=== PATIENT | male | born 1945 | race Caucasian/White ===

== ENCOUNTER → 2016-07-18 | Outpatient (CLI) | payer MEDICARE | LOC: BFHH 12:46 | PROVIDERS: ATTEND Family Medicine | DX: I10 Essential (primary) hypertension (principal); I50.30 Unspecified diastolic (congestive) heart failure; E11.9 Type 2 diabetes mellitus without complications; I11.0 Hypertensive heart disease with heart failure; E78.00 Pure hypercholesterolemia, unspecified; M62.81 Muscle weakness (generalized) ==

== ENCOUNTER → 2017-01-09 | Outpatient (CLI) | payer MEDICARE ==
--- NOTE | 2017-01-11 15:11 | US ---
EXAM DESCRIPTION: Testicular CLINICAL HISTORY: 71 years Male, TESTICULAR MASS COMPARISON: None. FINDINGS: Testicles normal in size, shape, and echotexture. Blood flow documented to both testicles. No testicular mass. Right testicle 4.3 x 3.0 x 2.9 cm. Left testicle 4.2 x 3.3 x 2.7 cm. Epididymides unremarkable except for several tiny cysts on the right. IMPRESSION: No worrisome finding Electronically signed by: Hugo Gamboa MD 01/11/2017 3:10 PM CDT
== END ==
LOC: US 13:36
PROVIDERS: ATTEND Family Medicine
DX: N50.89 Other specified disorders of the male genital organs (principal)

== ENCOUNTER 2017-02-09 11:24 | Inpatient (IN) | payer MEDICARE ==
[2017-02-09] MEDS ORDERED: IPRATROPIUM/ALBUTEROL 3 ML VIAL NEB ONE (11:37)
--- NOTE | 2017-02-09 11:43 | ED.PDOC ---
History of Present Illness - General Chief Complaint: Respiratory Problem Stated Complaint: shortness of breath Time Seen by Provider: 02/09/17 11:37 Source: patient, RN notes reviewed, Vital Signs reviewed, RN/MD Exam Limitations: no limitations - History of Present Illness Initial Comments: Patient comes in to ER for PCP office for SOB and hypoxia. HE has COPD and is on O2 24 hours/day but he has been more SOB and even with increasing his O2 to 3L his O2 saturation was still low. Patient feels like there is something in his L lung. He increased his O2 to 3L about 2 weeks ago but his SOB got significantly worse 2 days ago. Patient has shingles on his L flank and thus has only been taking shallow breaths due to the pain. He is concerned me may have pneumonia. + chills, no fever. Nl appetite. No GILLIS. Timing/Duration: days - 2, getting worse Severity: moderate Activities at Onset: none Possible Cause: occasional episodes Improving Factors: nothing Worsening Factors: nothing Associated Symptoms: anxiety, cough, wheezing Respiratory Risk Factors: other - HX of COPD Allergies/Adverse Reactions: Allergies Metformin Allergy (Verified 02/09/17 11:40) Home Medications: Ambulatory Orders Arformoterol Tartrate [Brovana] 15 mcg IN BID 02/09/17 Aspirin [(None)] 325 mg PO QD 02/09/17 Budesonide Nebs [Pulmicort Respules] 0.5 mg NEB BID 02/09/17 Clonazepam 0.5 mg PO DAILY 02/09/17 Clonazepam 1 mg PO BEDTIME 02/09/17 Gabapentin 300 mg PO QID 02/09/17 Glimepiride 4 mg PO BID 02/09/17 Hydrocodone-Acetaminophen [Nebo 5-325 mg] 1 tab PO Q4H PRN 02/09/17 Lisinopril 20 mg PO DAILY 02/09/17 Metoprolol Succinate [Toprol XL] 50 mg PO DAILY 02/09/17 Multiple Vitamin [Multivitamins] 1 cap PO DAILY 02/09/17 Naproxen Sodium [Aleve] 220 mg PO BEDTIME 02/09/17 [place] Fatty Acids-Vitamins [[place]-3 Gummies] 1 chw PO BID 02/09/17 Pioglitazone HCl 45 mg PO DAILY 02/09/17 Pravastatin Sodium [Pravachol] 20 mg PO BEDTIME 02/09/17 Roflumilast [Daliresp] 500 mcg PO DAILY 02/09/17 Tiotropium Berthold Monohydrate [Spiriva Respimat] 2 inh IN DAILY 02/09/17 Review of Systems - Review of Systems Constitutional: States: chills, malaise. Denies: fever EENTM: States: no symptoms reported Respiratory: States: see HPI, cough, short of breath, wheezing Cardiology: States: no symptoms reported. Denies: chest pain, edema, palpitations, syncope Gastrointestinal/Abdominal: States: no symptoms reported Musculoskeletal: States: no symptoms reported Skin: States: no symptoms reported Neurological: States: no symptoms reported All other Systems: No Change from Baseline Family Medical History - Family History Father Family History: Unknown Living Status: Unknown Physical Exam - Physical Exam General Appearance: Alert, Ill Appearing, Well Developed, Well Groomed, Well Hydrated, Well Nourished, Other - Visabily SOB Neck: non-tender, full range of motion, supple, normal inspection Respiratory: chest non-tender, respiratory distress - Moderate, decreased breath sounds - throughout, accessory muscle use, wheezing Cardiovascular/Chest: regular rate, rhythm, no edema, no gallop, no murmur Extremity: normal range of motion, normal inspection Neurologic: alert, normal mood/affect, oriented x 3 Skin Exam: normal color, warm/dry Comments: Vital Signs 02/09/17 02/09/17 02/09/17 11:30 11:50 12:00 Temperature 96.2 F L Pulse Rate 82 Pulse Rate [ 92 H Left Brachial] Respiratory 28 H 28 H 18 Rate Blood Pressure 144/77 [Left Arm] O2 Sat by Pulse 94 L 99 Oximetry Progress - Progress Progress: 02/09/17 12:[address] Chu. Will admit for COPD exacerbation - Results/Orders Results/Orders: Laboratory Tests 02/09/17 02/09/17 02/09/17 11:55 11:55 11:55 WBC 7.5 RBC 4.18 L Hgb 13.1 L Hct 39.0 L MCV 93.2 MCH 31.3 H MCHC 33.6 RDW 14.5 Plt Count 240 MPV 7.5 Absolute Neuts (auto) 5.30 Absolute Lymphs (auto) 1.30 Absolute Monos (auto) 0.70 Absolute Eos (auto) 0.20 Absolute Basos (auto) 0.10 Neutrophils % 71.3 Lymphocytes % 16.7 L Monocytes % 8.9 Eosinophils % 2.3 Basophils % 0.8 D-Dimer, Quantitative < 230 Sodium 138 Potassium 6.3 H Chloride 102 Carbon Dioxide 29 Anion Gap 13.3 BUN 31 H Creatinine 1.28 BUN/Creatinine Ratio 24.2 H Random Glucose 148 H Serum Osmolality 285.0 Calcium 10.2 Total Bilirubin 0.3 AST 16 ALT 29 Alkaline Phosphatase 74 Serum Total Protein 7.6 Albumin 4.1 Globulin 3.5 Albumin/Globulin Ratio 1.2 - EKG/XRAY/CT EKG: Sinus, Tachy, nonspecific ST T wave Chg XRAY: chest - No acute process per Radiologist Departure - Departure Clinical Impression: COPD exacerbation, Hyperkalemia Time of Disposition: 12:40 Disposition: Admit Patient Condition: Poor Departure Forms: ED Discharge - Pt. Copy, Patient Portal Self Enrollment Referrals: Emmett Valderrama MD [Primary Care Provider] - 1-2 Weeks Home Medications: Ambulatory Orders Arformoterol Tartrate [Brovana] 15 mcg IN BID 02/09/17 Aspirin [(None)] 325 mg PO QD 02/09/17 Budesonide Nebs [Pulmicort Respules] 0.5 mg NEB BID 02/09/17 Clonazepam 0.5 mg PO DAILY 02/09/17 Clonazepam 1 mg PO BEDTIME 02/09/17 Gabapentin 300 mg PO QID 02/09/17 Glimepiride 4 mg PO BID 02/09/17 Hydrocodone-Acetaminophen [Nebo 5-325 mg] 1 tab PO Q4H PRN 02/09/17 Lisinopril 20 mg PO DAILY 02/09/17 Metoprolol Succinate [Toprol XL] 50 mg PO DAILY 02/09/17 Multiple Vitamin [Multivitamins] 1 cap PO DAILY 02/09/17 Naproxen Sodium [Aleve] 220 mg PO BEDTIME 02/09/17 [place] Fatty Acids-Vitamins [[place]-3 Gummies] 1 chw PO BID 02/09/17 Pioglitazone HCl 45 mg PO DAILY 02/09/17 Pravastatin Sodium [Pravachol] 20 mg PO BEDTIME 02/09/17 Roflumilast [Daliresp] 500 mcg PO DAILY 02/09/17 Tiotropium Berthold Monohydrate [Spiriva Respimat] 2 inh IN DAILY 02/09/17 Decision To Admit - Decistion To Admit Decision to Admit Reason: Admit from ER Decision to Admit Date: 02/09/17 Decision to Admit Time: 12:39
--- NOTE | 2017-02-09 12:21 | RAD ---
Portable chest INDICATION: Shortness of breath congestion COMPARISON: June 24, 2008 IMPRESSION: Normal heart size. Lungs are hyperexpanded. Small areas of scarring and nodularity are noted in both lung bases. When appropriate upright PA and lateral films would be useful to further characterize these. Nodular densities cannot be excluded especially in the left base. No large effusion or pneumothorax. Otherwise no acute process Electronically signed by: Erick Mcbride MD 02/09/2017 12:20 PM CDT
[2017-02-09] MEDS ORDERED: methylPREDNISolone SODIUM SUC 125 MG/2 ML VIAL IV ONE (12:40)
--- NOTE | 2017-02-09 13:08 | HP ---
HISTORY OF PRESENT ILLNESS: This 71 year-old white male is admitted to the hospital from Dr. Valderrama' clinic after being referred to the Emergency Room to assist in ruling out a significant pulmonary shunt such as a pulmonary emboli contributing to significant hypoxia with pulse oximetry 83% on 3 liters nasal cannula. The patient has had a longstanding history of chronic obstructive pulmonary disease with approximately a 100 pack year of smoking of up to 2 packs a day for 50 years. He is still smoking about 1/2 pack a day. He presents with worsening shortness of breath for the last month and has increased his oxygen from the usual 2 liters up to 3 liters about a month ago. He has had no fever, but he has had chills. Sputum is yellowish at times but no blood present. Of note is that 2 months ago he developed significant painful rash with vesicle and blister formation on the left flank and left thigh suggesting a herpes zoster or shingles which was conservatively treated and still having significant postherpetic neuralgia pain. The patient's respiratory condition is specifically contributing to his requirement for hospitalization. The patient is admitted to the hospital with elevated potassium, moderate dehydration, hypoxia, chronic obstructive pulmonary disease exacerbation and specialized treatment for his ongoing shingles. PAST MEDICAL HISTORY: 1. Diabetes mellitus on oral therapy. 2. Chronic obstructive pulmonary disease . 3. Chronic oxygen use generally at 2 liters, now 3 liters per minute for the last month. PAST SURGICAL HISTORY: 1. Gallbladder in approximately 1979. FAMILY HISTORY: Diabetes and lymphoma. 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 His is a nurse. REVIEW OF SYSTEMS: No significant weight loss or fever, but he has had some chills. HEENT: Decreased hearing especially on the left ear. Vision is fairly good. NECK: Otherwise supple. LUNGS: Significant shortness of breath initially to the point where he was unable to communicate in sentences. A little bit better after initiation of bronchial hygiene in the Emergency Room. CARDIOVASCULAR: No significant gallop rhythms. ABDOMEN: Soft, slightly distended. No organomegaly, masses or tenderness evident. He does have significant skin discoloration with areas of healing vesicles from the left flank around and including the left thigh region. Very tender to even slight touch. NEUROLOGIC: The patient is otherwise awake, alert and oriented. When asked a question, he noticeably stops and thinks about the question for a few seconds before responding. The is able to assist with the ongoing history. PHYSICAL EXAMINATION: VITAL SIGNS: Afebrile, pulse 76, blood pressure 115/70, pulse oximetry 94% on 3 liters in the Emergency Room. He had only 83% on [address] Valderrama' office. Respiratory rate 28 with respiratory distress initially evident. Weight 79.4 kilos. HEENT: Decreased hearing on the left with the patient receiving audible stimulus from the right side better than the left. NECK: Supple. No carotid bruits. CHEST: Lungs have markedly diminished breath sounds bilaterally, occasional cough and occasional rhonchi more present on the right lateral than the left. CARDIOVASCULAR: Heart tones somewhat distant yet appear to be fairly regular. ABDOMEN: Soft with diminished bowel tones. No organomegaly or masses noted. EXTREMITIES: Significant skin involvement with herpes zoster with healed vesicles and areas of hyperpigmented regions, very tender to touch from the left flank midline from the spine all the way down and to include the anterolateral posterior thigh on the left. NEUROLOGIC: Significant pain upon slight touch involving the herpes zoster region left lumbar distribution. LABORATORY: White count 7,500, hemoglobin 13.1, D-dimer is under 230. Chemistry shows potassium 6.3 not on any potassium supplements, CO2 is 29, BUN 31, creatinine 1.28, glucose 148. Urine pending. Blood cultures pending. Chest x-ray shows evidence of chronic obstructive pulmonary disease with emphysematous changes. ASSESSMENT: 1. Chronic obstructive pulmonary disease with an acute exacerbation. 2. Significant hypoxia noted to be getting worse for the last month contributing to significant respiratory distress. 3. Moderate dehydration state. 4. Mild prerenal azotemia with elevated BUN. 5. Hyperkalemia with treatment initiated. 6. Recent Herpes Zoster with associated Neuralgia - Lumbar 1-2 dermatomes on Left PLAN: The patient is admitted to the hospital for hydration as well as Kayexalate to assist with reduction of the hyperkalemic state. Started on Solu- Medrol, vigorous bronchodilators and bronchial hygiene, and close followup necessary. Reevaluation. Continue with localized treatment to the herpes zoster as well as his ongoing medication nebulizers from home and the hospital to assist with the respiratory state. Reevaluate. #[id number] [facility]
[2017-02-09] MEDS ORDERED: HYDROcodone 5MG/APAP 325MG 1 EA TAB PO ONE (15:33)
[2017-02-09] MEDS ORDERED: GLIMEPIRIDE 2 MG TAB ONE (15:38)
[2017-02-09] MEDS ORDERED: GABAPENTIN 300 MG CAP ONE (15:39)
[2017-02-09] MEDS: LISINOPRIL 10 MG TAB PO SCH (15:40)
[2017-02-09] MEDS ORDERED: SODIUM CHLORIDE 0.9% (FLUSH) 10 ML SYG IV PRN (15:46)
[2017-02-09] MEDS ORDERED: TEMAZEPAM 15 MG CAP PO PRN (15:46)
[2017-02-09] MEDS ORDERED: MAGNESIUM HYDROXIDE 30 ML UD PO PRN (15:46)
[2017-02-09] MEDS ORDERED: LEVALBUTEROL NEBS 1.25 MG/3 ML VIAL INH PRN (15:46)
[2017-02-09] MEDS ORDERED: SOD POLYSTYRENE SULFONATE 15 GM/60 ML BTTL PO ONE (15:55)
[2017-02-09] MEDS ORDERED: IV SET AND CAP CHANGE INJ INJ SCH (16:00)
[2017-02-09] MEDS: HYDROcodone 5MG/APAP 325MG 1 EA TAB PO PRN (16:20)
[2017-02-09] MEDS: SILVER SULFADIAZINE 1 % 25 GM TUBE TOP PRN (16:20)
[2017-02-09] MEDS: ENOXAPARIN SODIUM 40 MG/0.4 ML SYG SUBCU SCH (16:20)
[2017-02-09] MEDS: GLIMEPIRIDE 2 MG TAB PO SCH (16:21)
[2017-02-09] MEDS: GABAPENTIN 300 MG CAP PO SCH ×2 (16:21→20:40)
[2017-02-09] MEDS: IPRATROPIUM/ALBUTEROL 3 ML VIAL INH SCH ×2 (16:26→20:27)
[2017-02-09] MEDS: NON-FORMULARY MEDICATION 1 EA MIS (Roflumilast [Daliresp] 500 MCG) PO SCH (16:29)
[2017-02-09] MEDS ORDERED: diphenhydrAMINE HCL 25 MG CAP PO PRN (19:08)
--- NOTE | 2017-02-09 19:22 | PCM.CORE ---
Physician DVT/VTE - Nurse DVT Assessment & Total Each Risk Factor Represents 2 Points: Age 60-74 Each Risk Factor Represents 1 Point: Hx of smoking past year Each Risk Factor is 1 Point: Serious Lung disease (pnemonia <1month, COPD, emphysema,etc) DVT Assessment Score: 4 - 3-4 High Risk Treatments: Sequential Compression Device Pharmacological: Enoxaparin 40 mg SQ Daily
[2017-02-09] MEDS ORDERED: methylPREDNISolone SODIUM SUC 40 MG/ML VIAL ONE (19:31)
[2017-02-09] MEDS ORDERED: NAPROXEN SODIUM 220 MG TAB PO ONE (19:31)
[2017-02-09] MEDS ORDERED: OMEPRAZOLE CAP 20 MG CAP ONE (19:31)
[2017-02-09] MEDS: NICOTINE PATCH 14 MG TD SCH (19:49)
[2017-02-09] MEDS: SODIUM CHLORIDE 0.9% 1000ML 1,000 ML IVS PRN (19:51)
[2017-02-09] MEDS: ARFORMOTEROL TARTRATE 15 MCG/2 ML NEB NEB SCH ×2 (20:26)
[2017-02-09] MEDS: NON-FORMULARY MEDICATION 1 EA MIS (Tiotropium Bromide Monohydrate [Spiriva Respimat] 2 INH INH SCH (20:27)
[2017-02-09] MEDS: BUDESONIDE NEBS 0.5 MG/2 ML VIAL NEB SCH ×2 (20:27→20:37)
[2017-02-09] MEDS: NAPROXEN SODIUM 220 MG TAB PO SCH (20:39)
--- NOTE | 2017-02-10 06:31 | RAD ---
Procedure: XR CHEST 2 VIEWS Exam Date: 02/10/2017 Ordering Provider: NIC AARON MD Clinical Indication: hypoxia Comparison: 02/09/2017 Findings: Cardiomediastinal silhouette is stable. Focal lung consolidation: No focal lung consolidation. Changes of COPD. Pleural effusion: None Pneumothorax: None Acute bony or soft tissue abnormality: None Impression: 1. No acute abnormalities in the chest. Electronically signed by: Dhaval Rodriguez MD 02/10/2017 6:29 AM CDT
[2017-02-10] MEDS: methylPREDNISolone SODIUM SUC 40 MG/ML VIAL IV SCH ×3 (06:39→22:43)
[2017-02-10] MEDS: OMEPRAZOLE CAP 20 MG CAP PO SCH (06:39)
[2017-02-10] MEDS: NON-FORMULARY MEDICATION 1 EA MIS (Tiotropium Bromide Monohydrate [Spiriva Respimat] 2 INH INH SCH (08:09)
[2017-02-10] MEDS: ARFORMOTEROL TARTRATE 15 MCG/2 ML NEB NEB SCH ×2 (08:21→20:12)
[2017-02-10] MEDS: IPRATROPIUM/ALBUTEROL 3 ML VIAL INH SCH ×4 (08:21→20:12)
[2017-02-10] MEDS: BUDESONIDE NEBS 0.5 MG/2 ML VIAL NEB SCH ×2 (08:21→20:12)
[2017-02-10] MEDS: GLIMEPIRIDE 2 MG TAB PO SCH ×2 (08:30→16:00)
[2017-02-10] MEDS: HYDROcodone 10MG/APAP 325MG 1 EA TAB PO PRN (08:38)
[2017-02-10] MEDS: MULTIPLE VITAMINS W/ MINERALS 1 EA TAB PO SCH (08:38)
[2017-02-10] MEDS: ASPIRIN TABLET 325 MG TAB PO SCH (08:38)
[2017-02-10] MEDS: GABAPENTIN 300 MG CAP PO SCH ×4 (08:38→20:43)
[2017-02-10] MEDS: ENOXAPARIN SODIUM 40 MG/0.4 ML SYG SUBCU SCH (08:39)
[2017-02-10] MEDS: PIOGLITAZONE 15 MG TAB PO SCH (08:39)
[2017-02-10] MEDS: METOPROLOL SUCCINATE XL 50 MG TAB PO SCH (08:39)
[2017-02-10] MEDS: LISINOPRIL 10 MG TAB PO SCH (08:39)
[2017-02-10] MEDS: NON-FORMULARY MEDICATION 1 EA MIS (Roflumilast [Daliresp] 500 MCG) PO SCH ×2 (08:40→10:49)
[2017-02-10] MEDS: SODIUM CHLORIDE 0.9% 1000ML 1,000 ML IVS PRN ×2 (08:41→20:45)
[2017-02-10] MEDS ORDERED: MULTIPLE VITAMIN PO SCH (09:00)
[2017-02-10] MEDS: SILVER SULFADIAZINE 1 % 25 GM TUBE TOP PRN (10:50)
[2017-02-10] MEDS: HYDROcodone 5MG/APAP 325MG 1 EA TAB PO PRN (12:28)
--- NOTE | 2017-02-10 17:13 | PN ---
DATE: 02/10/17 SUBJECTIVE: The patient is sitting up and states he feels much less dyspneic and short of breath today compared to yesterday. He has been able to get up and walk a little bit but we have no record yet of the results of his ambulation study checking for desaturation and possible requirements for continued oxygen at home. Appetite is fair. Still with tenderness and hypesthesia in the region of the herpes zoster, low left back into the left thigh. Also with some discomfort over the costochondral joint of the left lateral ribs. OBJECTIVE: VITAL SIGNS: Afebrile. Pulse 86, blood pressure 105/61, pulse oximetry 98% on 2 liters. GENERAL: The patient is awake and alert. Still some hesitancy in answering questions as he thinks the answer thoroughly through. Will discuss his case with his in the morning. LUNGS: Diminished breaths sounds bilaterally. HEART: Tones regular. ABDOMEN : Soft, still no results from milk of magnesia yet. LABORATORY: Hemoglobin is down to 11.1, normocytic normochromic with a white count of 7,800. Chemistries show potassium down from 6.3 to 5.5 and normal being under 5.0. BUN is 36, creatinine down to 1.06, glucose 203, calcium 9.2, liver enzymes normal. Beta natriuretic peptide 64, albumin 3.5, TSH 0.14. Blood cultures are negative. Chest x-ray shows emphysematous changes but no acute infiltrates or inflammatory processes noted. ASSESSMENT: 1. Chronic obstructive pulmonary disease with an acute exacerbation. 2. Significant hypoxia noticing to be getting worse over the last month no doubt contributing to his significant respiratory distress noted prior to admission and probably secondary to the chronic obstructive pulmonary disease. 3. Moderate dehydration state. 4. Mild prerenal azotemia with elevated BUN. 5. Hyperkalemia with treatment initiated and showing some improvement. 6. Post-Herpetic Neuralgia. Left Lumbar 1&2 dermatomes. PLAN: Continue on reduced dose of Solu-Medrol. Reevaluation in the morning. Await ambulation study to check on ongoing need of oxygen for home use. Continue with herpes zoster treatment and observe to see if corticosteroid assist with some of the symptomatology, Regular basis in the morning. [facility][id number] [facility]
[2017-02-10] MEDS: NICOTINE PATCH 14 MG TD SCH (18:30)
[2017-02-10] MEDS: NAPROXEN SODIUM 220 MG TAB PO SCH (20:43)
[2017-02-11] MEDS: HYDROcodone 10MG/APAP 325MG 1 EA TAB PO PRN (04:16)
[2017-02-11] MEDS: OMEPRAZOLE CAP 20 MG CAP PO SCH (06:37)
[2017-02-11] MEDS: methylPREDNISolone SODIUM SUC 40 MG/ML VIAL IV SCH ×2 (07:26→08:21)
[2017-02-11] MEDS: GLIMEPIRIDE 2 MG TAB PO SCH (07:26)
[2017-02-11] MEDS: PIOGLITAZONE 15 MG TAB PO SCH (08:10)
[2017-02-11] MEDS: ASPIRIN TABLET 325 MG TAB PO SCH (08:10)
[2017-02-11] MEDS: METOPROLOL SUCCINATE XL 50 MG TAB PO SCH (08:10)
[2017-02-11] MEDS: MULTIPLE VITAMINS W/ MINERALS 1 EA TAB PO SCH (08:10)
[2017-02-11] MEDS: LISINOPRIL 10 MG TAB PO SCH (08:10)
[2017-02-11] MEDS: GABAPENTIN 300 MG CAP PO SCH ×2 (08:10→13:11)
[2017-02-11] MEDS: ENOXAPARIN SODIUM 40 MG/0.4 ML SYG SUBCU SCH (08:11)
[2017-02-11] MEDS: BUDESONIDE NEBS 0.5 MG/2 ML VIAL NEB SCH (08:21)
[2017-02-11] MEDS: IPRATROPIUM/ALBUTEROL 3 ML VIAL INH SCH ×2 (08:21→12:39)
[2017-02-11] MEDS: ARFORMOTEROL TARTRATE 15 MCG/2 ML NEB NEB SCH (08:21)
[2017-02-11] MEDS: NON-FORMULARY MEDICATION 1 EA MIS (Tiotropium Bromide Monohydrate [Spiriva Respimat] 2 INH INH SCH (08:21)
[2017-02-11] MEDS: NON-FORMULARY MEDICATION 1 EA MIS (Roflumilast [Daliresp] 500 MCG) PO SCH (08:27)
[2017-02-11] MEDS ORDERED: SOD POLYSTYRENE SULFONATE 15 GM/60 ML BTTL PO SCH (09:00)
[2017-02-11] MEDS: SODIUM CHLORIDE 0.9% 1000ML 1,000 ML IVS PRN (09:36)
[2017-02-11] MEDS ORDERED: FUROSEMIDE INJ 20 MG/2 ML VIAL IV ONE (10:42)
[2017-02-11 11:20] VITALS: O2SAT 98
[2017-02-11] MEDS: HYDROcodone 5MG/APAP 325MG 1 EA TAB PO PRN (13:11)
[2017-02-11 14:06] VITALS: BP 125/72; TEMP 98.7
--- NOTE | 2017-02-11 20:51 | DS ---
DISCHARGE DIAGNOSIS: 1. Chronic obstructive pulmonary disease with an acute exacerbation requiring corticosteroid administration, bronchodilator with pulmonary hygiene for assistance. 2. Significant hypoxia on admission getting worse for the last month, no doubt contributing to his significant respiratory distress and probably secondary to COPD exacerbation. 3. Moderate dehydration state. 4. Mild prerenal azotemia with an elevated BUN. 5. Hyperkalemia with specific treatment started and to be continued at home, chronic in nature deserving continued followup. 6. Subacute Herpes Zoster with post-herpetic neuralgia in Lumbar 1&2 distribution HISTORY OF PRESENT ILLNESS: This 71 year-old white male was admitted to the hospital from the Emergency Room after being sent from Dr. Valderrama' office because of significant shortness of breath with hypoxia and respiratory distress. He had a pulse oximetry of 83% on 3 liters. He normally takes 2 liters of nasal cannula oxygen at home but has had to increase it to 3 liters for the last month. He has had a longstanding history of chronic obstructive pulmonary disease with over 100 pack year history of smoking and is currently at 1/2 or slightly more pack of cigarettes per day and encouraged to stop completely. It is of note that he has been increasing his oxygen fairly significantly when he is short of breath which may be contributing to some slightly increased CO2 retention. Significant occurrence of herpes zoster in the left lumbar region primarily involving L1, 2 and 3 distributions. The vesicles have subsequently dried up but he is still having significant postherpetic neuralgia pain. In the Emergency Room, he was noted to have a fairly normal D-dimer which assisted in eliminating at this time significant pulmonary emboli contributing to his significant hypoxic state suggesting a pulmonary shunt. His chest x-rays did show chronic obstructive pulmonary disease with no infiltrative process and he was admitted to the hospital for specific treatment and support for a significant acute exacerbation of his chronic obstructive pulmonary disease. LABORATORY: White count is 7,800, hemoglobin dropped from 13.1 to 10.7. D- dimer was under 230. Chemistry shows an elevated potassium which is chronic currently up to 6.3 down to 5.5 and then up to 5.9 and requiring repeat dosings of the Kayexalate. His BUN was elevated at 35 and creatinine was down to 1.02, glucose because of corticosteroids increased from 148 up to 271. Calcium normal at 9.5. Liver enzymes normal. Beta natriuretic peptide initially was 64 increasing to 163 probably secondary to some of the fluid infusions that he received and subsequently were stopped. Albumin 3.5, TSH somewhat low at 0.14. Urinalysis showed glycosuria and ketonuria, otherwise clean. Blood cultures were negative. Repeat chest x-ray did show chronic obstructive pulmonary disease with no acute abnormalities otherwise evident. HOSPITAL COURSE: The patient was feeling much improved by the morning of discharge. He will have specifically close outpatient followup with Dr. Valderrama' office. Long discussion was undertaken to impress upon him the importance of stopping all smoking. PLAN: The patient is discharged home to have close followup with Dr. Valderrama this next week. He is to call for an appointment. Stop all smoking. He may try nicotine patches to assist him with the urge to restart his smoking with close followup with Dr. Valderrama. Use oxygen at home to maintain pulse oximetry between 91 and 93% only. Recheck further lab work with Dr. Valderrama later this week in his clinic to help followup on kidney function and electrolytes. Continue with medication nebulizer treatments to help the lungs. Try to increase exercise level to become stronger. Continue followup regarding the pain from the shingles. Try Milk of Magnesia to help prevent constipation. Breathe deeply and actively contract and relax muscles of the legs to help prevent leg clots in the veins of his legs. Return if not improving. May benefit from pulmonary rehabilitation. Close followup suggested. #[id number] [facility]
[2017-02-11] MEDS ORDERED: SODIUM CHLORIDE 0.9% (FLUSH) 10 ML SYG IV SCH (21:00)
== END 2017-02-11 15:20 | disposition home or self-care (01) | DRG 191 ==
LOC: ER 11:24 → MS 13:07
PROVIDERS: ADMIT Emergency Medicine; ATTEND Emergency Medicine
DX: J44.1 Chronic obstructive pulmonary disease with (acute) exacerbation (principal); B02.29 Other postherpetic nervous system involvement; R09.02 Hypoxemia; E86.0 Dehydration; R79.89 Other specified abnormal findings of blood chemistry; R74.8 Abnormal levels of other serum enzymes; E87.5 Hyperkalemia; E11.9 Type 2 diabetes mellitus without complications; F17.210 Nicotine dependence, cigarettes, uncomplicated; Z99.81 Dependence on supplemental oxygen

== ENCOUNTER 2017-05-22 13:37 | Inpatient (IN) | payer MEDICARE ==
--- NOTE | 2017-05-22 14:03 | ED.PDOC ---
History of Present Illness - General Chief Complaint: General Stated Complaint: weakness and falls Time Seen by Provider: 05/22/17 13:45 Source: patient, family - History of Present Illness Initial Comments: PT WAS BROUGHT TO THE ED FOR EVALUATION TODAY FOR EVALUATION OF GENERALIZED WEAKNESS ASSOCIATED WITH 3 FALLS OVER THE PAST FEW DAYS. PT WAS ALSO FOUND TO HAVE ELEVATED BLOOD GLUCOSE TODAY. CHIEF OF PARTY DENIES ANY HEAD TRAUMA OR LOC DURING THE FALLS. PT COMPLAINS OF TAILBONE PAIN AFTER FALL. Timing/Duration: 1 week Severity: moderate Improving Factors: nothing Worsening Factors: nothing Associated Symptoms: cough, fever/chills, malaise, weakness Allergies/Adverse Reactions: Allergies Metformin Allergy (Verified 02/09/17 11:40) Home Medications: Ambulatory Orders Arformoterol Tartrate [Brovana] 15 mcg IN BID 02/09/17 Aspirin 325 mg PO QD 02/09/17 Budesonide Nebs [Pulmicort Respules] 0.5 mg NEB BID 02/09/17 Clonazepam 0.5 mg PO DAILY 02/09/17 Clonazepam 1 mg PO BEDTIME 02/09/17 Gabapentin 300 mg PO QID 02/09/17 Glimepiride 4 mg PO BID 02/09/17 Hydrocodone-Acetaminophen [[place] 5-325 mg] 2 tab PO Q4H PRN 02/09/17 Lisinopril 20 mg PO DAILY 02/09/17 Metoprolol Succinate [Toprol Xl] 50 mg PO DAILY 02/09/17 Multiple Vitamin [Multivitamins] 1 cap PO DAILY 02/09/17 Naproxen Sodium [Aleve] 220 mg PO BEDTIME 02/09/17 [place] Fatty Acids-Vitamins [[place]-3 Gummies] 1 chw PO BID 02/09/17 Pioglitazone HCl 45 mg PO DAILY 02/09/17 Pravastatin Sodium [Pravachol] 20 mg PO BEDTIME 02/09/17 Roflumilast [Daliresp] 500 mcg PO DAILY 02/09/17 Tiotropium [place] Monohydrate [Spiriva Respimat] 2 inh IN DAILY 02/09/17 Furosemide [Lasix] 20 mg PO DAILY 05/22/17 Varenicline Tartrate [Chantix] 1 mg PO BID 05/22/17 Review of Systems - Review of Systems Constitutional: States: fever, malaise, weakness. Denies: chills EENTM: Denies: blurred vision, ear discharge, throat pain Respiratory: States: see HPI, cough, short of breath. Denies: stridor Cardiology: Denies: chest pain, edema, palpitations, syncope Gastrointestinal/Abdominal: Denies: abdominal pain, diarrhea, nausea, vomiting Genitourinary: Denies: dysuria, frequency, hematuria Skin: Denies: change in color, dryness, lesions Neurological: States: weakness. Denies: headache, numbness, paresthesia Endocrine: States: no symptoms reported Hematologic/Lymphatic: States: no symptoms reported Past Medical History (General) - Patient Medical History Hx Seizures: No Hx Stroke: No Hx Asthma: No Hx of COPD: Yes - exacerbation on arrival Hx Congestive Heart Failure: No Hx Pacemaker: No Hx Hypertension: Yes - controlled w/ meds Hx Diabetes: Yes - Type 2 Hx Cancer: No Hx Hepatitis C: No Hx MRSA: No Surgical History: cholecystectomy - Vaccination History Hx Tetanus, Diphtheria Vaccination: Yes Hx Influenza Vaccination: Yes Hx Pneumococcal Vaccination: Yes Immunizations Up to Date: Yes - Social History Hx Tobacco Use: Yes Hx Alcohol Use: Yes - SOCIAL Hx Substance Use: No Hx Substance Use Treatment: No Hx Depression: No Hx Physical Abuse: No Hx Emotional Abuse: No Family Medical History - Family History Father Family History: Unknown Living Status: Unknown Physical Exam - Physical Exam General Appearance: Alert, Frail, No apparent distress Ears, Nose, Throat: hearing grossly normal Neck: non-tender, full range of motion Respiratory: chest non-tender, no respiratory distress, no accessory muscle use , decreased breath sounds, rhonchi Cardiovascular/Chest: regular rate, rhythm, no murmur Gastrointestinal/Abdominal: non tender, soft Back Exam: normal inspection, other - TENDERNESS OF COCCYX Extremity: normal inspection, no pedal edema, no calf tenderness Neurologic: no motor/sensory deficits, alert Skin Exam: normal color, warm/dry Progress - Progress Progress: 05/22/17 17:20 PT CONTINUES TO REST COMFORTABLY, LABS AND DIAGNOSTIC STUDIES DISCUSSED WITH CHIEF OF PARTY. - Results/Orders Results/Orders: 05/22/17 13:59 IV Care:Saline Lock per Protoc QSHIFT Telemetry .ONCE CARDIAC ENZYME GROUP Stat COMPLETE METABOLIC PROFILE Stat Sodium Chloride 0.9% (Flush) [Saline Flush Syringe] 10 ml IV PRN PRN BLOOD CULTURE Stat URINE CULTURE W/COLONY COUNT Stat EKG Stat Pulse Ox Stat URINALYSIS Stat 05/22/17 14:00 EKG Assessment ONCE Pulse Oximetry Assessment DAILY Laboratory Results - last 24 hr 05/22/17 05/22/17 05/22/17 13:59 13:59 13:59 WBC 15.7 H RBC 3.13 L Hgb 9.6 L Hct 28.4 L MCV 90.7 MCH 30.6 MCHC 33.9 RDW 14.4 Plt Count 263 MPV 6.9 L Absolute Neuts (auto) 13.80 H Absolute Lymphs (auto) 0.40 L Absolute Monos (auto) 1.30 H Absolute Eos (auto) 0.00 Absolute Basos (auto) 0.10 Neutrophils % 88.2 H Lymphocytes % 2.8 L Monocytes % 8.5 Eosinophils % 0.0 L Basophils % 0.5 PT 13.3 H INR 1.180 PTT (SP) 32.9 pCO2 pO2 HCO3 ABG pH ABG O2 Saturation ABG Base Excess ABG Deoxyhemoglobin Oxyhemoglobin % Carboxyhemoglobin % Methemoglobin % Sat Calc Total Hemoglobin Sodium 128 L Potassium 5.5 H Chloride 92 L Carbon Dioxide 24 Anion Gap 17.5 BUN 46 H Creatinine 1.88 H BUN/Creatinine Ratio 24.5 H Random Glucose 291 H Serum Osmolality 279.7 Lactic Acid Calcium 9.5 Total Bilirubin 0.4 AST 24 ALT 17 Alkaline Phosphatase 67 Creatine Kinase 100 CK-MB (CK-2) 1.1 Troponin I 0.02 Serum Total Protein 7.5 Albumin 3.2 Globulin 4.3 H Albumin/Globulin Ratio 0.7 L 05/22/17 05/22/17 13:59 14:19 WBC RBC Hgb Hct MCV MCH MCHC RDW Plt Count MPV Absolute Neuts (auto) Absolute Lymphs (auto) Absolute Monos (auto) Absolute Eos (auto) Absolute Basos (auto) Neutrophils % Lymphocytes % Monocytes % Eosinophils % Basophils % PT INR PTT (SP) pCO2 36 pO2 96 HCO3 24.8 ABG pH 7.450 ABG O2 Saturation 99.9 H ABG Base Excess 1.5 ABG Deoxyhemoglobin 0.1 Oxyhemoglobin % 97.5 Carboxyhemoglobin % 0.8 Methemoglobin % Sat 1.6 H Calc Total Hemoglobin 9.8 L Sodium Potassium Chloride Carbon Dioxide Anion Gap BUN Creatinine BUN/Creatinine Ratio Random Glucose Serum Osmolality Lactic Acid 2.4 H* Calcium Total Bilirubin AST ALT Alkaline Phosphatase Creatine Kinase CK-MB (CK-2) Troponin I Serum Total Protein Albumin Globulin Albumin/Globulin Ratio - EKG/XRAY/CT EKG: Sinus, Tachy - @101, NL INTERVALS, NL AXIS, POOR R WAVE PROGRESSION, no ST T wave changes, Unchanged from - 02/09/17 XRAY: chest - NO ACUTE FINDINGS PER RAD Departure - Departure Clinical Impression: UTI (urinary tract infection), Generalized muscle weakness, Acute kidney injury , Hyponatremia, Hyperglycemia, Hyperkalemia, Dehydration Time of Disposition: 17:10 Disposition: Admit Patient Condition: Fair Home Medications: Ambulatory Orders Arformoterol Tartrate [Brovana] 15 mcg IN BID 02/09/17 Aspirin 325 mg PO QD 02/09/17 Budesonide Nebs [Pulmicort Respules] 0.5 mg NEB BID 02/09/17 Clonazepam 0.5 mg PO DAILY 02/09/17 Clonazepam 1 mg PO BEDTIME 02/09/17 Gabapentin 300 mg PO QID 02/09/17 Glimepiride 4 mg PO BID 02/09/17 Hydrocodone-Acetaminophen [[place] 5-325 mg] 2 tab PO Q4H PRN 02/09/17 Lisinopril 20 mg PO DAILY 02/09/17 Metoprolol Succinate [Toprol Xl] 50 mg PO DAILY 02/09/17 Multiple Vitamin [Multivitamins] 1 cap PO DAILY 02/09/17 Naproxen Sodium [Aleve] 220 mg PO BEDTIME 02/09/17 [place] Fatty Acids-Vitamins [[place]-3 Gummies] 1 chw PO BID 02/09/17 Pioglitazone HCl 45 mg PO DAILY 02/09/17 Pravastatin Sodium [Pravachol] 20 mg PO BEDTIME 02/09/17 Roflumilast [Daliresp] 500 mcg PO DAILY 02/09/17 Tiotropium [place] Monohydrate [Spiriva Respimat] 2 inh IN DAILY 02/09/17 Furosemide [Lasix] 20 mg PO DAILY 05/22/17 Varenicline Tartrate [Chantix] 1 mg PO BID 05/22/17
[2017-05-22] MEDS: SODIUM CHLORIDE 0.9% (FLUSH) 10 ML SYG IV PRN ×2 (14:30→20:24)
--- NOTE | 2017-05-22 15:35 | RAD ---
EXAM DESCRIPTION: Chest,1 View CLINICAL HISTORY: 72 years, Male, COUGH/FEVER COMPARISON: February 10 FINDINGS: Hyperinflation. Scarring the bases. Borderline heart size. Atherosclerotic aorta. IMPRESSION: Hyperinflation with chronic lung change. No consolidation. Borderline heart size Electronically signed by: Toño Berrios MD 05/22/2017 3:34 PM [facility]SP[facility]ATION ESCORT
--- NOTE | 2017-05-22 15:38 | RAD ---
EXAM DESCRIPTION: Sacrum Coccyx CLINICAL HISTORY: 72 years Male, FALL COMPARISON: None. FINDINGS: 3 views of the sacrum were obtained. The inferior portion of the sacrum is suboptimally visualized on all views, partially related to superimposed bowel contents. No displaced sacral fracture is identified. Vascular calcifications are noted. IMPRESSION: Slightly limited exam with no apparent displaced sacral fracture. If clinical suspicion of sacral or other pelvic fracture persists, CT should be considered. Electronically signed by: Jatinder St MD 05/22/2017 3:37 PM [facility]
[2017-05-22] MEDS ORDERED: cefTRIAXone SODIUM 1 GM in SODIUM CHL 0.9% 50ML MIN-BAG+ 50 ML IVPB ONE (16:46)
[2017-05-22] MEDS ORDERED: SODIUM CHL 0.9% 50ML MIN-BAG+ 50 ML IVPB ONE (16:52)
[2017-05-22] MEDS ORDERED: cefTRIAXone SODIUM 1 GM VIAL ONE (16:52)
--- NOTE | 2017-05-22 17:20 | HP ---
SUPERVISING PHYSICIAN: Shemar Ansari MD CHIEF COMPLAINT: Weakness and falls. HISTORY OF PRESENT ILLNESS: This is a 72-year-old male patient who came to the Emergency Room due to generalized weakness and falls. He states for the last three days he has fallen multiple times. He states he has weakness in his legs and has weakness in his back and neck as well. For this reason, he came to the Emergency Room. He also has pain especially around his tailbone. This was x- rayed and did not reveal any sort of sacral fracture. A more complete workup was done which included labs and urinalysis as well. The labs done showed an elevated white count of 15.7, hemoglobin 9.6, platelet count 263. He also had an arterial blood gas which was unremarkable. Chemistries showed a sodium of 128, potassium 5.5, BUN 46, creatinine 1.88, glucose 291, lactic acid 2.4. Urinalysis was consistent with a urinary tract infection, positive for nitrites , WBCs 30 to 40, urine bacteria 4+. For this reasons, he was referred for admission from the Emergency Room physician, Dr. Torres. Upon examination, the patient appears acutely ill. He is awake and alert, but definitely weak in his lower extremities. He does have a history of chronic obstructive pulmonary disease and he does use oxygen continuously. He is a little bit dyspneic on exam as well. PAST MEDICAL HISTORY: 1. Diabetes mellitus. 2. Chronic obstructive pulmonary disease on chronic oxygen therapy. 3. Hypertension. 4. Generalized anxiety disorder. 5. Herpes zoster. 6. Hypertensive heart disease. 7. Hyperlipidemia. PAST SURGICAL HISTORY: 1. Cholecystectomy. 2. Cataract removal. MEDICATIONS: 1. Gabapentin 600 mg p.o. q.i.d. 2. Furosemide 20 mg p.o. daily. 3. [place] 5/325 1 tablet every 4 to 6 hours p.r.n. for pain. 4. Brovana 18 mcg inhaled in nebulizer b.i.d. 5. Budesonide 2.5 mg 1 ampule b.i.d. 6. Daliresp 500 mcg 1 tablet daily. 7. Glimepiride 4 mg p.o. b.i.d. 8. Lisinopril 20 mg daily. 9. Actos 45 mg daily. 10. Pravastatin 20 mg daily at bedtime. 11. Spiriva 2.5 mcg inhaled 2 puffs daily. 12. Clonazepam 1 mg half tab in the morning and 1 tab at h.s. 13. Aleve 220 mg p.o. q.h.s. 14. Multivitamins 1 tab daily. 15. Aspirin 325 mg p.o. daily. 16. Seth-3 fatty acids twice daily. ALLERGIES: METFORMIN WHICH REPORTEDLY CAUSES DIARRHEA. FAMILY HISTORY: Mother had lymphoma. SOCIAL HISTORY: The patient is a former smoker, but does not smoke any longer. No alcohol, no illicit drugs. He is . REVIEW OF SYSTEMS: CONSTITUTIONAL: No fever or chills. No recent weight loss or weight gain. HEENT: No headaches or vision changes, ear pain, throat pain or nasal congestion. RESPIRATORY: Positive for cough, shortness of breath. No pleuritic chest pain. CARDIOVASCULAR: No chest pain, palpitations, peripheral edema. GASTROINTESTINAL: No nausea, vomiting, diarrhea, constipation or abdominal pain. GENITOURINARY: No dysuria, frequency or flank pain. SKIN: No rashes, lesions or wounds. NEUROLOGIC: Positive for weakness. No syncope or paresthesias. ENDOCRINE: No polydipsia, polyuria or polyphagia, no heat or cold intolerance. HEMATOLOGIC: Positive for easy bruising. PHYSICAL EXAMINATION: VITAL SIGNS: Blood pressure 99/52. Heart rate 94. Respiratory rate 20. Temperature 101.9. Oxygen saturation 97%. GENERAL: Mr. Ivory is a 72-year-old male patient acutely ill at this time. HEENT: Normocephalic, atraumatic. Pupils equal and reactive. No nasal drainage. Throat with slightly dry buccal mucosa. NECK: Supple with midline trachea. No jugular venous distention. CHEST: Symmetric. Equal rise and fall with inspiration and expiration. Lungs sounds with prolonged expiratory phase with a slight wheeze bilaterally. CARDIOVASCULAR: Regular rate and rhythm with normal S1, S2. ABDOMEN: Soft, positive bowel sounds. He does complain of some flank pain, but I think it is more related to his sensitivity from herpes zoster. GENITOURINARY: Deferred. EXTREMITIES: Lower extremities with some trace ankle edema. Peripheral pulses are 1+. Capillary refill is approximately 3 seconds. NEUROLOGIC: The patient is alert and oriented. He moves all extremities . Extraocular muscles are intact. LABORATORY: Urinalysis is positive for nitrites as well as WBCs in the urine. Chemistries as above in history of present illness, remarkable for acute kidney injury and hyponatremia as well as hyperkalemia. He has an elevated white count. ASSESSMENT: 1. Sepsis secondary to urinary tract infection. 2. Acute kidney injury secondary to prerenal. 3. Chronic obstructive pulmonary disease without acute exacerbation. 4. Diabetes mellitus, type 2. 5. Anemia. PLAN: 1. The patient appears to be early sepsis, so we will monitor the cultures, give IV fluids, and continue with IV antibiotics. 2. Because of the acute kidney injury, we will replenish his fluids and hold his diuretics. We will reevaluate his labs in the morning as well. 3. Regarding his diabetes, I have ordered insulin per sliding scale. 4. The patient is not in acute exacerbation of chronic obstructive pulmonary disease, however, I have ordered breathing treatments, scheduled as well as p.r.n. We will resume his home medications once they are reviewed. 5. The patient is slightly anemic. He is not in transfusion range, however. We will monitor this closely and if he is dropping his hemoglobin, we will intervene at that point. #[id number] [facility]
[2017-05-22] MEDS ORDERED: ACETAMINOPHEN 500 MG TAB ONE (17:27)
[2017-05-22] MEDS ORDERED: ACETAMINOPHEN 500 MG TAB PO ONE (17:32)
[2017-05-22] MEDS ORDERED: IPRATROPIUM/ALBUTEROL 3 ML VIAL NEB PRN (18:44)
[2017-05-22] MEDS ORDERED: SODIUM CHLORIDE 0.9% (FLUSH) 10 ML SYG IV PRN (18:44)
[2017-05-22] MEDS ORDERED: DEXTROSE 50% 25 GM/50 ML SYG IV PRN (18:52)
[2017-05-22] MEDS ORDERED: GLUCAGON INJ 1 MG VIAL SUBCU PRN (18:52)
--- NOTE | 2017-05-22 18:55 | PCM.CORE ---
Physician DVT/VTE - Nurse DVT Assessment & Total Each Risk Factor Represents 3 Points: Medical PT with Hx of NM, CHF, Severe infection/sepsis Each Risk Factor Represents 2 Points: Age 60-74 DVT Assessment Score: 5 - 5 or more Very High Risk Treatments: Early Ambulation *, Sequential Compression Device Pharmacological: Enoxaparin 40mg SQ Daily
[2017-05-22] MEDS ORDERED: LACTATED RINGERS 1,000 ML IVS ONE (18:58)
[2017-05-22] MEDS ORDERED: cefTRIAXone SODIUM 1 GM in SODIUM CHL 0.9% 50ML MIN-BAG+ 50 ML IVPB SCH (19:00)
[2017-05-22] MEDS: IV SET AND CAP CHANGE INJ INJ SCH (19:09)
[2017-05-22] MEDS: ENOXAPARIN SODIUM 30 MG/0.3 ML SYG SUBCU SCH (19:10)
[2017-05-22] MEDS ORDERED: IPRATROPIUM/ALBUTEROL 3 ML VIAL INH SCH (20:00)
[2017-05-22] MEDS: SODIUM CHLORIDE 0.9% 1000ML 1,000 ML IVS PRN (20:24)
[2017-05-22] MEDS: INSULIN LISPRO 100 UNITS/ML PEN SUBCU SCH (21:17)
[2017-05-22] MEDS ORDERED: HYDROcodone 5MG/APAP 325MG 1 EA TAB PO PRN (21:38)
[2017-05-22] MEDS ORDERED: ASPIRIN TABLET 325 MG TAB PO SCH (22:00)
[2017-05-23] MEDS ORDERED: HYDROcodone 5MG/APAP 325MG 1 EA TAB PO PRN (02:28)
[2017-05-23] MEDS: ENOXAPARIN SODIUM 30 MG/0.3 ML SYG SUBCU SCH ×2 (06:30→18:23)
[2017-05-23] MEDS: OMEPRAZOLE CAP 20 MG CAP PO SCH (06:30)
[2017-05-23] MEDS: SODIUM CHLORIDE 0.9% 1000ML 1,000 ML IVS PRN ×2 (07:38→23:47)
[2017-05-23] MEDS: INSULIN LISPRO 100 UNITS/ML PEN SUBCU SCH ×4 (07:52→20:54)
[2017-05-23] MEDS: BUDESONIDE NEBS 0.5 MG/2 ML VIAL NEB SCH ×2 (08:55→20:03)
[2017-05-23] MEDS: IPRATROPIUM/ALBUTEROL 3 ML VIAL NEB SCH ×4 (08:55→20:03)
[2017-05-23] MEDS: ARFORMOTEROL TARTRATE 15 MCG/2 ML NEB NEB SCH ×2 (08:55→20:03)
[2017-05-23] MEDS: ASPIRIN TABLET 325 MG TAB PO SCH (09:03)
[2017-05-23] MEDS: VARENICLINE 0.5 MG TAB PO SCH ×2 (09:03→20:48)
[2017-05-23] MEDS: PIOGLITAZONE 15 MG TAB PO SCH (09:04)
[2017-05-23] MEDS: GABAPENTIN 300 MG CAP PO SCH ×4 (09:04→20:48)
[2017-05-23] MEDS: GLIMEPIRIDE 2 MG TAB PO SCH ×2 (09:05→17:23)
[2017-05-23] MEDS: NON-FORMULARY MEDICATION 1 EA MIS (Roflumilast [Daliresp] 500 MCG) PO SCH ×2 (09:14→12:34)
--- NOTE | 2017-05-23 10:35 | PN ---
SUPERVISING PHYSICIAN: Shemar Ansari MD DATE: 05/23/17 SUBJECTIVE: The patient feels a little bit better this morning. He is still extremely weak. Overnight, he did not have any significant issues. He has gotten his antibiotics as scheduled. His IV fluids continue to infuse. OBJECTIVE: VITAL SIGNS: Blood pressure 94/59. Heart rate 89. Respiratory rate 20. Temperature 99.6 with T-max of 100.0 at 0200. O2 saturation 95%. GENERAL: Mr. Ivory is a 72-year-old male patient who is definitely acutely ill in appearance at this time. NEUROLOGIC: Alert and oriented. He does have lower extremity weakness. LUNGS: Expiratory wheezing bilaterally with some mild coarse sounds, mainly in the bases. CARDIOVASCULAR: Regular rate and rhythm. Normal S1, S2. ABDOMEN: Soft. Positive bowel sounds. Nontender to palpation. MUSCULOSKELETAL: He has lower extremity weakness. Capillary refill less than 2 seconds. LABORATORY: Urine culture has already come back with gram negative rods. Blood cultures are still pending. WBC 13.3, hemoglobin 7.7, hematocrit 22.5, platelet count 240. Sodium 130, potassium 5.0, chloride 96, CO2 26, BUN 49, creatinine 1.83, glucose 285, calcium 8.17. ASSESSMENT: 1. Sepsis secondary to urinary tract infection. 2. Acute kidney injury secondary to dehydration. 3. Chronic obstructive pulmonary disease. 4. Diabetes mellitus, type 2. 5. Anemia. PLAN: 1. At this time, we will continue to wait for culture results. I am going to escalate antibiotics at this point, however. 2. Acute kidney injury is a little bit better, but not to the degree I would think it would be, so I am going to do a CT abdomen/pelvis unfortunately without contrast to make sure that he does not have any obstructing stone or hydronephrosis. 3. Chronic obstructive pulmonary disease appears to continue to be without exacerbation. We will continue current therapy. 4. His diabetes is suboptimally controlled at this point with blood sugars still in the 280s. We will add insulin coverage. 5. Hemoglobin has dropped to 7.7. I am going to type and cross match 2 units of blood and likely transfuse this. #[id number] [facility]
[2017-05-23] MEDS: NON-FORMULARY MEDICATION 1 EA MIS (Tiotropium Bromide Monohydrate [Spiriva Respimat] 2 INH IN SCH (10:52)
[2017-05-23] MEDS ORDERED: SODIUM CHL 0.9% 50ML MIN-BAG+ 50 ML IVPB ONE ×2 (11:00→18:06)
[2017-05-23] MEDS ORDERED: MEROPENEM 500 MG VIAL IVPB ONE ×2 (11:01→18:07)
[2017-05-23] MEDS: MEROPENEM 500 MG in SODIUM CHL 0.9% 50ML MIN-BAG+ 50 ML IVPB SCH ×2 (11:03→18:21)
[2017-05-23] MEDS ORDERED: INSULIN DETEMIR 100 UNITS/ML PEN SUBCU ONE (11:41)
--- NOTE | 2017-05-23 12:15 | CT ---
EXAM DESCRIPTION: Abdoment/Pelvis w/o Contrast CLINICAL HISTORY: abdpain, rule out obstructing stone/hydronephrosis COMPARISON: None Available TECHNIQUE: CT of the abdomen and Pelvis was performed without IV contrast. This exam was performed according to our departmental dose-optimization program, which includes automated exposure control, adjustment of the mA and/or kV according to patient size and/or use of iterative reconstruction technique. FINDINGS: There is a 6 mm nonobstructing mid right renal calculus. No additional right-sided urinary tract calculus or right-sided hydronephrosis. There is a 2.4 cm cyst in the inferior pole of the right kidney with a smaller right renal cyst near the same location. Mild right-sided perinephric fat stranding is noted. There is no left-sided urinary tract calculus or left-sided hydronephrosis. There are 2 cysts in the left kidney, the largest measuring 4 cm diameter. No suspicious left renal mass. Left-sided perinephric fat stranding is also noted. No bladder wall thickening or bladder calcification. There are mural calcifications in the abdominal aorta without aneurysm. The gallbladder is surgically absent. There are some irregular airspace consolidation posteriorly in the right lung base which is suspicious for developing pneumonia. No pneumoperitoneum, ascites or adenopathy. The liver, spleen, pancreas and adrenals are unremarkable for noncontrast technique. No dilated small bowel loops. The prostate is at the upper limits of normal size, measuring 5 cm diameter. No colonic wall thickening or pericolonic inflammation. No acute bone lesion. IMPRESSION: Pneumonia involving a portion of the right lower lobe. Bilateral perinephric fat stranding of uncertain acuity, correlate with urinalysis to exclude the possibility of polynephritis. 6 mm nonobstructing right renal calculus, but no additional urinary tract calculus or hydronephrosis. Electronically signed by: Jatinder St MD 05/23/2017 12:14 PM [employer] WORK[employer]
[2017-05-23] MEDS ORDERED: cefTRIAXone SODIUM 1 GM in SODIUM CHL 0.9% 50ML MIN-BAG+ 50 ML IVPB SCH (17:00)
[2017-05-23] MEDS ORDERED: PRAVASTATIN SODIUM 20 MG TAB ONE (19:46)
[2017-05-23] MEDS ORDERED: SODIUM CHLORIDE 0.9% 500ML 500 ML ONE (20:02)
[2017-05-23] MEDS ORDERED: SODIUM CHLORIDE 0.9% 500ML 500 ML IVS ONE (20:03)
[2017-05-23] MEDS ORDERED: ACETAMINOPHEN 325 MG TAB PO ONE (20:43)
[2017-05-23] MEDS: PRAVASTATIN SODIUM 20 MG TAB PO SCH (20:49)
[2017-05-23] MEDS ORDERED: diphenhydrAMINE HCL 50 MG/ML VIAL IV ONE (21:00)
[2017-05-24] MEDS ORDERED: MEROPENEM 500 MG VIAL IVPB ONE ×2 (02:01→10:19)
[2017-05-24] MEDS ORDERED: SODIUM CHL 0.9% 50ML MIN-BAG+ 50 ML IVPB ONE ×4 (02:01→19:25)
[2017-05-24] MEDS: MEROPENEM 500 MG in SODIUM CHL 0.9% 50ML MIN-BAG+ 50 ML IVPB SCH ×2 (02:03→11:52)
[2017-05-24] MEDS: OMEPRAZOLE CAP 20 MG CAP PO SCH (06:35)
[2017-05-24] MEDS: ENOXAPARIN SODIUM 30 MG/0.3 ML SYG SUBCU SCH (06:35)
[2017-05-24] MEDS: BUDESONIDE NEBS 0.5 MG/2 ML VIAL NEB SCH ×2 (07:16→20:06)
[2017-05-24] MEDS: ARFORMOTEROL TARTRATE 15 MCG/2 ML NEB NEB SCH ×2 (07:16→20:06)
[2017-05-24] MEDS: IPRATROPIUM/ALBUTEROL 3 ML VIAL NEB SCH ×3 (07:16→20:06)
--- NOTE | 2017-05-24 07:16 | RAD ---
EXAM DESCRIPTION: Chest,1 View CLINICAL HISTORY: RLL pneumonia shortness of breath COMPARISON: May 22, 2017 IMPRESSION: Single AP portable upright view of the chest shows cardiac silhouette and pulmonary vasculature to be within normal limits. Lungs are mildly hyperinflated. There is a new linear area of interstitial thickening over the right hemidiaphragm that could represent platelike atelectasis versus developing pneumonia or infiltrate. No obvious pleural effusion or pneumothorax is seen. Electronically signed by: Adrian Syed MD 05/24/2017 7:15 AM UTILITY OPERATOR [facility]
[2017-05-24] MEDS: INSULIN LISPRO 100 UNITS/ML PEN SUBCU SCH ×4 (07:37→21:41)
[2017-05-24] MEDS: NON-FORMULARY MEDICATION 1 EA MIS (Tiotropium Bromide Monohydrate [Spiriva Respimat] 2 INH IN SCH (07:41)
[2017-05-24] MEDS: GLIMEPIRIDE 2 MG TAB PO SCH ×2 (07:45→21:42)
[2017-05-24] MEDS: HYDROcodone 10MG/APAP 325MG 1 EA TAB PO PRN (08:56)
[2017-05-24] MEDS: GABAPENTIN 300 MG CAP PO SCH ×4 (09:06→21:42)
[2017-05-24] MEDS: VARENICLINE 0.5 MG TAB PO SCH ×2 (09:06→20:35)
[2017-05-24] MEDS: ASPIRIN TABLET 325 MG TAB PO SCH (09:06)
[2017-05-24] MEDS: PIOGLITAZONE 15 MG TAB PO SCH (09:07)
[2017-05-24] MEDS: NON-FORMULARY MEDICATION 1 EA MIS (Roflumilast [Daliresp] 500 MCG) PO SCH (09:09)
[2017-05-24] MEDS: INSULIN DETEMIR 100 UNITS/ML PEN SUBCU SCH (09:12)
--- NOTE | 2017-05-24 09:36 | PN ---
SUPERVISING PHYSICIAN: Shemar Ansari MD DATE: 05/24/17 SUBJECTIVE: Today, the patient complains that he did not sleep a whole lot last night. He said he kept on getting awakened by the staff. However, they were giving blood products throughout the night. He did state he felt a little bit better than he did yesterday. He is still pretty weak and not getting out of bed. His is not at the bedside currently. He was made a DNR yesterday. OBJECTIVE: VITAL SIGNS: Blood pressure 106/66. Heart rate 96. Respiratory rate 16. Temperature 98.8. Oxygen saturation 98%. GENERAL: Mr. Ivory is an acutely ill appearing male patient who is in no active distress currently. NEUROLOGIC: Alert and oriented. LUNGS: Bilateral expiratory wheezing and bibasilar diminishing. CARDIOVASCULAR: Regular rate and rhythm. Normal S1, S2. ABDOMEN: Soft. Positive bowel sounds. Nontender to palpation. MUSCULOSKELETAL: Weak lower extremities, but pulses are 2+. Capillary refill less than 2 seconds. LABORATORY: White count 7.7, hemoglobin 10.3 which is an improvement from 7.7 yesterday, hematocrit 30.1, platelet count 215. Chemistries show sodium 135, potassium 5.0, chloride 102, CO2 27, BUN 38, creatinine 1.33, glucose 204, calcium 8.7. BUN and creatinine were improved as well as glucose. His cultures have come back. Both blood culture bottles show E. coli as well as his urine culture shows E. coli. I have looked at the sensitivities and he has multidrug resistance, however, it is sensitive to the Merrem that we placed him on, so we will continue this at this time. Chest x-ray was done this morning as well and shows there may be a little bit of interstitial thickening of the right hemidiaphragm which could represent atelectasis versus pneumonia. The CT scan yesterday did confirm that he does have a right lower lobe pneumonia as well. ASSESSMENT: 1. Sepsis secondary to urinary tract infection. This has grown out Escherichia coli in his blood as well as his urine. 2. Right lower lobe pneumonia seen via CT scan of the abdomen. 3. Acute kidney injury secondary to dehydration, improved. 4. Chronic obstructive pulmonary disease without an acute exacerbation. 5. Diabetes mellitus, type 2. 6. Anemia. PLAN: 1. We did escalate his antibiotic therapy yesterday to Merrem from Rocephin. Given the culture results, we will continue the Merrem. This is a multidrug resistant organism, so he will need quite some time on Merrem and may need to go to a facility where he can get Merrem IV. 2. Right lower lobe pneumonia should be responsive to Merrem as well. We will continue his nebulizers. I have also ordered incentive spirometry. 3. His acute kidney injury is significantly improved on his labs today. We will continue his fluids. His CT scan of the abdomen and pelvis yesterday showed pyelonephritis, but it did not show any hydronephrosis or obstructing stones. 4. I have ordered physical therapy as well. The patient is still pretty weak and began getting weak three days prior to admission. He did not have a whole lot of functionality, however, he would benefit from some physical therapy and actually getting out of bed at this point. 5. His diabetes is a little bit better controlled today. I did order long- acting insulin on him yesterday. 6. Hemoglobin is improved from 7.7 to 10 this morning. We will continue to monitor this as well. #[id number] [facility]
[2017-05-24] MEDS: LIDOCAINE 5% TOP SCH (09:42)
[2017-05-24] MEDS ORDERED: MAGNESIUM HYDROXIDE 30 ML UD PO PRN (10:44)
[2017-05-24] MEDS ORDERED: MEROPENEM 1 GM VIAL IVPB ONE ×3 (11:05→19:27)
[2017-05-24] MEDS: SODIUM CHLORIDE 0.9% 1000ML 1,000 ML IVS PRN ×2 (11:07→22:59)
[2017-05-24] MEDS: MEROPENEM 1 GM in SODIUM CHL 0.9% 50ML MIN-BAG+ 50 ML IVPB SCH ×2 (11:08→21:42)
[2017-05-24] MEDS: DOCUSATE SODIUM 100 MG CAP PO SCH (14:09)
[2017-05-24] MEDS: PRAVASTATIN SODIUM 20 MG TAB PO SCH (20:35)
[2017-05-25] MEDS: HYDROcodone 10MG/APAP 325MG 1 EA TAB PO PRN ×3 (01:59→20:49)
[2017-05-25] MEDS: MEROPENEM 1 GM in SODIUM CHL 0.9% 50ML MIN-BAG+ 50 ML IVPB SCH ×3 (02:02→18:02)
[2017-05-25] MEDS ORDERED: SODIUM CHLORIDE 0.65% NASAL SPRAY 45 ML BTTL BNAS PRN (03:18)
[2017-05-25] MEDS: OMEPRAZOLE CAP 20 MG CAP PO SCH (06:12)
--- NOTE | 2017-05-25 07:05 | RAD ---
EXAM: Single view chest. INDICATION: Pneumonia. COMPARISON: Chest x-ray: 05/24/2016. FINDINGS: There is a right basilar airspace opacity. The left lung is clear. The heart is normal in size. There is no pneumothorax or pleural effusion. IMPRESSION: Right basilar airspace opacity, which likely represent atelectasis or possibly pneumonia Electronically signed by: Julio Novak MD 05/25/2017 7:04 AM MEDICAL ADMINISTRATIVE TECHNICIAN Workstation: [id number]
[2017-05-25] MEDS ORDERED: SODIUM CHL 0.9% 50ML MIN-BAG+ 50 ML IVPB ONE ×2 (07:07→17:24)
[2017-05-25] MEDS ORDERED: ENOXAPARIN SODIUM 40 MG/0.4 ML SYG SUBCU ONE (07:08)
[2017-05-25] MEDS ORDERED: MEROPENEM 1 GM VIAL IVPB ONE ×2 (07:08→17:24)
[2017-05-25] MEDS: INSULIN LISPRO 100 UNITS/ML PEN SUBCU SCH ×4 (07:39→21:10)
[2017-05-25] MEDS: GLIMEPIRIDE 2 MG TAB PO SCH ×2 (08:05→18:02)
[2017-05-25] MEDS: IPRATROPIUM/ALBUTEROL 3 ML VIAL NEB SCH ×4 (08:22→20:07)
[2017-05-25] MEDS: BUDESONIDE NEBS 0.5 MG/2 ML VIAL NEB SCH ×2 (08:22→20:07)
[2017-05-25] MEDS: ARFORMOTEROL TARTRATE 15 MCG/2 ML NEB NEB SCH ×2 (08:22→20:07)
[2017-05-25] MEDS: NON-FORMULARY MEDICATION 1 EA MIS (Tiotropium Bromide Monohydrate [Spiriva Respimat] 2 INH IN SCH (08:45)
[2017-05-25] MEDS: VARENICLINE 0.5 MG TAB PO SCH ×2 (09:27→20:49)
[2017-05-25] MEDS: ASPIRIN TABLET 325 MG TAB PO SCH (09:27)
[2017-05-25] MEDS: DOCUSATE SODIUM 100 MG CAP PO SCH (09:27)
[2017-05-25] MEDS: PIOGLITAZONE 15 MG TAB PO SCH (09:28)
[2017-05-25] MEDS: GABAPENTIN 300 MG CAP PO SCH ×4 (09:28→20:49)
[2017-05-25] MEDS: NON-FORMULARY MEDICATION 1 EA MIS (Roflumilast [Daliresp] 500 MCG) PO SCH (09:30)
[2017-05-25] MEDS: ENOXAPARIN SODIUM 40 MG/0.4 ML SYG SUBCU SCH (09:31)
[2017-05-25] MEDS: INSULIN DETEMIR 100 UNITS/ML PEN SUBCU SCH (09:40)
[2017-05-25] MEDS: LIDOCAINE 5% TOP SCH (09:50)
[2017-05-25] MEDS: SODIUM CHLORIDE 0.9% 1000ML 1,000 ML IVS PRN (12:00)
--- NOTE | 2017-05-25 13:19 | PN ---
SUPERVISING PHYSICIAN: Shemar Ansari MD DATE: 05/25/17 SUBJECTIVE: The patient sitting up in his bed. He complains of continued weakness and shortness of breath, but feels slightly better than yesterday. Dr. Valderrama talked to the patient and the patient's family at length about his discharge planning and that he would go to Swing Bed for IV antibiotic therapy for his pneumonia and his urosepsis and he would be discharged with [facility]. OBJECTIVE: VITAL SIGNS: Temperature 99.7. Heart rate 98. Blood pressure 117/ 71. Respiratory rate 20. O2 sat 99% on 2 liters. LUNGS: Bilateral rhonchi throughout with some diminished breath sounds at the bases. CARDIAC: Regular rate and rhythm. ABDOMEN: Soft, nondistended, nontender. Bowel sounds are positive. EXTREMITIES: He does have some essential tremors. No cyanosis, clubbing or edema. NEUROLOGIC: Awake, alert and oriented times three. LABORATORY: WBC improved to 7.2, hemoglobin slightly worse at 9.5, hematocrit 27.8. Platelet count 232. Sodium 131, potassium 5.1, chloride 101, carbon dioxide 23, BUN 24, creatinine 0.93, glucose 143. Glucose has ranged between 101 and 248. Urine culture is back and shows multiresistance with the exception of several IV antibiotics and meropenem is one. He is presently on meropenem. His final blood culture is back showing multidrug resistance Escherichia coli and it also shows sensitivities to several IV antibiotics. Meropenem is also in that list and he is presently on that antibiotic. His chest x-ray shows right basilar airspace opacity which likely represents atelectasis or possibly pneumonia. All other labs and films have been reviewed via the EMR. ASSESSMENT: 1. Sepsis secondary to urinary tract infection. This has grown out multidrug resistant Escherichia coli in both blood and urine, presently on Merrem which shows a sensitivity. 2. Right lower lobe pneumonia seen via CT scan of the abdomen as well as x- rays. 3. Acute kidney injury secondary to dehydration, improved. 4. Chronic obstructive pulmonary disease without an acute exacerbation. 5. Diabetes mellitus, type 2. 6. Anemia. 7. Post herpetic neuropathy. PLAN: We will continue present supportive care. His antibiotic therapy will remain on Merrem and we will discharge the patient from Acute Care setting to Swing Bed admission for strengthening and conditioning as well as IV antibiotics therapy in the next day or two. We will continue pulmonary hygiene and the Merrem as well for his pneumonia. Kidney function continues to improve and he will continue with his physical therapy, both now and at Swing Bed admission. He continues to get short of breath with his physical therapy and we will continue to progress slowly as the patient tolerates it. He was started on long-acting Levemir last night at 10 units nightly and his blood sugars have improved quite a bit. I will continue him on the present dose of Levemir as well as continue with sliding scale. We will also watch his hemoglobin tomorrow in case he needs another transfusion. We will discharge him from the Acute Care setting and admit him to Swing Bed for strengthening and conditioning and IV antibiotic therapy hopefully tomorrow or the next day. After discharge, he will be discharged home with [facility] hospice and they will start the admission process for hospice now so all can be in order when he goes home. Otherwise, we will continue to monitor the patient closely and follow as needed. Dr. Ansari is the collaborating physician and available for consultation. #[id number] [facility]
[2017-05-25] MEDS: PRAVASTATIN SODIUM 20 MG TAB PO SCH (20:49)
[2017-05-25] MEDS: IV SET AND CAP CHANGE INJ INJ SCH (20:50)
[2017-05-26] MEDS ORDERED: SODIUM CHL 0.9% 50ML MIN-BAG+ 50 ML IVPB ONE ×4 (02:19→20:01)
[2017-05-26] MEDS ORDERED: MEROPENEM 1 GM VIAL IVPB ONE ×4 (02:19→20:03)
[2017-05-26] MEDS: SODIUM CHLORIDE 0.9% 1000ML 1,000 ML IVS PRN (02:38)
[2017-05-26] MEDS: MEROPENEM 1 GM in SODIUM CHL 0.9% 50ML MIN-BAG+ 50 ML IVPB SCH ×3 (02:41→17:38)
[2017-05-26] MEDS: HYDROcodone 10MG/APAP 325MG 1 EA TAB PO PRN ×3 (05:11→18:48)
[2017-05-26] MEDS: OMEPRAZOLE CAP 20 MG CAP PO SCH (06:48)
[2017-05-26] MEDS: INSULIN LISPRO 100 UNITS/ML PEN SUBCU SCH ×4 (07:46→21:24)
[2017-05-26] MEDS: GLIMEPIRIDE 2 MG TAB PO SCH ×2 (07:49→17:38)
[2017-05-26] MEDS: DOCUSATE SODIUM 100 MG CAP PO SCH (08:27)
[2017-05-26] MEDS: ENOXAPARIN SODIUM 40 MG/0.4 ML SYG SUBCU SCH (08:27)
[2017-05-26] MEDS: ASPIRIN TABLET 325 MG TAB PO SCH (08:27)
[2017-05-26] MEDS: PIOGLITAZONE 15 MG TAB PO SCH (08:27)
[2017-05-26] MEDS: GABAPENTIN 300 MG CAP PO SCH ×2 (08:27→17:38)
[2017-05-26] MEDS: VARENICLINE 0.5 MG TAB PO SCH ×2 (08:27→20:27)
[2017-05-26] MEDS: INSULIN DETEMIR 100 UNITS/ML PEN SUBCU SCH (08:28)
[2017-05-26] MEDS: NON-FORMULARY MEDICATION 1 EA MIS (Roflumilast [Daliresp] 500 MCG) PO SCH (08:31)
[2017-05-26] MEDS: LIDOCAINE 5% TOP SCH (08:31)
[2017-05-26] MEDS: NON-FORMULARY MEDICATION 1 EA MIS (Tiotropium Bromide Monohydrate [Spiriva Respimat] 2 INH IN SCH (08:37)
[2017-05-26] MEDS: ARFORMOTEROL TARTRATE 15 MCG/2 ML NEB NEB SCH ×2 (08:37→19:57)
[2017-05-26] MEDS: IPRATROPIUM/ALBUTEROL 3 ML VIAL NEB SCH ×4 (08:37→19:57)
[2017-05-26] MEDS: BUDESONIDE NEBS 0.5 MG/2 ML VIAL NEB SCH ×2 (08:50→19:57)
[2017-05-26] MEDS ORDERED: SODIUM CHLORIDE 0.65% NASAL SPRAY 45 ML BTTL BNAS PRN (09:07)
[2017-05-26] MEDS ORDERED: MAGNESIUM SULFATE PREMIX 2GM 2 GM in PREMIX BAG 1 BAG IVPB ONE (12:01)
[2017-05-26] MEDS ORDERED: PREGABALIN 100 MG CAP PO ONE (12:14)
--- NOTE | 2017-05-26 12:45 | PN ---
DATE: 05/26/17 SUPERVISING PHYSICIAN: Shemar Ansari M.D. SUBJECTIVE: The patient is sitting up in his hospital bed. He has complaints of postherpetic neuropathy and feels like the pain medicine is not controlling it. He still has shortness of breath but denies chest pain, nausea, vomiting or diarrhea. He did have a bowel movement last night and he feels much better. OBJECTIVE: VITAL SIGNS: He is afebrile, heart rate 88, blood pressure 119/69, respiratory rate 20, O2 sat is 98% on 2 liters nasal cannula. RESPIRATORY: Some scattered rhonchi in the apices, somewhat slightly diminished at the bases , otherwise clear to auscultation. CARDIAC: Regular rate and rhythm. ABDOMEN: Soft, nondistended. It is mildly tender. EXTREMITIES: No cyanosis, clubbing or edema. He does have healing shingles lesions on his left thigh that wraps around to his lower back. It is tender to palpation, but there are no open lesions at this time. NEUROLOGIC: He is awake, alert and oriented times three. He does have an essential tremor. LABORATORY: WBCs are 6.3, H&H is stable at 10.3 and 30.4. Electrolytes are basically within normal limits. Creatinine has improved to 0.73. Glucose 96, it has been as high as 265. Magnesium is low at 1.7. All other labs and films have been reviewed via the EMR. ASSESSMENT: 1. Sepsis secondary to urinary tract infection. This has grown out multidrug resistant Escherichia coli in both blood and urine, presently on Merrem which shows a sensitivity. 2. Right lower lobe pneumonia seen via CT scan of the abdomen as well as x- rays. 3. Acute kidney injury secondary to dehydration, improved. 4. Chronic obstructive pulmonary disease without an acute exacerbation. 5. Diabetes mellitus, type 2. 6. Anemia. 7. Post herpetic neuropathy. 8. Hypomagnesemia. PLAN: We will continue present supportive care. He will continue on his Merrem and hopefully he will be discharged tomorrow from the Acute Care setting and readmitted to Swing Bed for Merrem antibiotic infusions as well as strengthening and conditioning per Physical Therapy. I have given him some magnesium today as well as some Mucinex. I have added Lyrica on top of his Gabapentin that might help with his postherpetic neuropathy. We will reevaluate that later today. Continue to encourage good pulmonary hygiene. Tomorrow or Sunday we will need to get in touch with [facility] so they can set up his home service after discharge. Otherwise we will continue to monitor the patient closely and follow as needed. Dr. Ansari is the collaborating physician available for consultation. #[id number] [facility]
[2017-05-26] MEDS ORDERED: MAGNESIUM SULFATE PREMIX 2GM 50 ML IVPB ONE (12:56)
[2017-05-26] MEDS: SODIUM CHLORIDE 0.9% (FLUSH) 10 ML SYG IV SCH ×2 (12:57→20:27)
[2017-05-26] MEDS: guaiFENesin ER TAB 600 MG TAB PO SCH ×2 (13:01→20:27)
[2017-05-26] MEDS ORDERED: GABAPENTIN 300 MG CAP ONE (14:38)
[2017-05-26] MEDS: PREGABALIN 75 MG CAP PO SCH (20:26)
[2017-05-26] MEDS: PRAVASTATIN SODIUM 20 MG TAB PO SCH (20:27)
[2017-05-27] MEDS: GABAPENTIN 300 MG CAP PO SCH ×2 (00:32→06:16)
[2017-05-27] MEDS: HYDROcodone 10MG/APAP 325MG 1 EA TAB PO PRN (00:51)
[2017-05-27] MEDS: MEROPENEM 1 GM in SODIUM CHL 0.9% 50ML MIN-BAG+ 50 ML IVPB SCH ×2 (02:11→11:00)
[2017-05-27] MEDS: OMEPRAZOLE CAP 20 MG CAP PO SCH (06:16)
[2017-05-27 06:32] VITALS: O2SAT 97
--- NOTE | 2017-05-27 07:12 | RAD ---
EXAM: Single view chest. INDICATION: Pneumonia. COMPARISON: Chest x-ray: 05/25/2017. FINDINGS: There is a right basilar airspace opacity. The left lung is clear. The heart size is stable. There is no pneumothorax or pleural effusion. The bones are unremarkable. IMPRESSION: Right basilar airspace opacity, which may represent atelectasis or pneumonia Electronically signed by: Julio Novak MD 05/27/2017 7:11 AM [facility] Workstation: [id number]
[2017-05-27] MEDS: INSULIN LISPRO 100 UNITS/ML PEN SUBCU SCH (07:42)
[2017-05-27] MEDS ORDERED: SODIUM CHL 0.9% 50ML MIN-BAG+ 50 ML IVPB ONE (07:45)
[2017-05-27] MEDS ORDERED: MEROPENEM 1 GM VIAL IVPB ONE (07:47)
[2017-05-27] MEDS: ARFORMOTEROL TARTRATE 15 MCG/2 ML NEB NEB SCH (08:02)
[2017-05-27] MEDS: IPRATROPIUM/ALBUTEROL 3 ML VIAL NEB SCH (08:02)
[2017-05-27] MEDS: BUDESONIDE NEBS 0.5 MG/2 ML VIAL NEB SCH (08:02)
[2017-05-27] MEDS: NON-FORMULARY MEDICATION 1 EA MIS (Tiotropium Bromide Monohydrate [Spiriva Respimat] 2 INH IN SCH (08:03)
[2017-05-27] MEDS: ASPIRIN TABLET 325 MG TAB PO SCH (08:18)
[2017-05-27] MEDS: PIOGLITAZONE 15 MG TAB PO SCH (08:18)
[2017-05-27] MEDS: DOCUSATE SODIUM 100 MG CAP PO SCH (08:18)
[2017-05-27] MEDS: GLIMEPIRIDE 2 MG TAB PO SCH (08:18)
[2017-05-27] MEDS: VARENICLINE 0.5 MG TAB PO SCH (08:18)
[2017-05-27] MEDS: ENOXAPARIN SODIUM 40 MG/0.4 ML SYG SUBCU SCH (08:19)
[2017-05-27] MEDS: guaiFENesin ER TAB 600 MG TAB PO SCH (08:19)
[2017-05-27] MEDS: LIDOCAINE 5% TOP SCH (08:19)
[2017-05-27] MEDS: PREGABALIN 75 MG CAP PO SCH (08:19)
[2017-05-27] MEDS: INSULIN DETEMIR 100 UNITS/ML PEN SUBCU SCH (08:20)
[2017-05-27] MEDS: NON-FORMULARY MEDICATION 1 EA MIS (Roflumilast [Daliresp] 500 MCG) PO SCH ×2 (08:22)
[2017-05-27] MEDS: SODIUM CHLORIDE 0.9% (FLUSH) 10 ML SYG IV SCH (08:22)
[2017-05-27 10:08] VITALS: BP 111/68; TEMP 98
--- NOTE | 2017-05-27 13:23 | DS ---
SUPERVISING PHYSICIAN: Shemar Ansari M.D. DISCHARGE DIAGNOSIS: ES 1. Sepsis secondary to urinary tract infection. Cultures have grown out multidrug resistant Escherichia coli in both blood and urine, presently on Merrem which cultures show a sensitivity. 2. Right lower lobe pneumonia seen via CT scan of the abdomen as well as x- rays. 3. Acute kidney injury secondary to dehydration, improved. 4. Chronic obstructive pulmonary disease without an acute exacerbation. 5. Diabetes mellitus, type 2. 6. Anemia. 7. Post herpetic neuropathy. 8. Hypomagnesemia that has normalized. HISTORY OF PRESENT ILLNESS: This is a 72 year-old male patient who came to the Emergency Room due to generalized weakness and falls Three days prior to admission, he had fallen several times and the weakness was in his legs, back and around his tailbone. He was x-rayed and it did not reveal any sort of sacral fracture. His labs showed an elevated white count of 15.7, hemoglobin 9.6 with platelet count 263. He also had an ABG that was basically within normal limits. Chemistries showed sodium 128, potassium 5.5, BUN 46, creatinine 1.88, glucose 291, lactic acid 2.4. Urinalysis was consistent with a urinary tract infection that was positive for nitrites. WBCs were 30 to 40 and urine bacteria 4+. He was admitted to the hospital and started on Merrem. HOSPITAL COURSE: He was given some fluids. His abdomen and pelvis CT showed pneumonia involving a portion of the right lower lobe. There was bilateral perinephric fat stranding of an uncertain acuity that most likely was pyelonephritis, a 6 mm nonobstructing right renal calculus but no additional urinary tract calculus or hydronephrosis. His sodium stabilized at 135, potassium was slightly high this morning at 5.8, but his creatinine was 0.96 with BUN of 24. Blood sugars were high and he was started on Levemir 10 units daily. Blood cultures as well as urine culture grew out Escherichia coli that was multidrug resistant, including the p.o. antibiotics but it showed sensitivity to Meropenem which he was on. His vital signs have been stable. His chest x-ray still shows some atelectasis versus pneumonia, but he is responding well to the Merrem. Physical Therapy has been working with him for strengthening and conditioning, and at this point he can be discharged from the Acute Care setting. DISCHARGE PLAN: The patient will be discharged from Acute Care and readmitted to the hospital as a Swing Bed patient for IV antibiotic therapy of Merrem as well as strengthening and conditioning per Physical Therapy. We will continue his routine medications. Will monitor his blood sugars closely as we may need to adjust his Levemir. He will be placed on Accu-Cheks with sliding scale. We will plan to do 7 to 10 days of Merrem IV antibiotic therapy. His first day of Merrem was 03/24/17. He is to have a followup with Dr. Valderrama, his primary care physician, after discharge from Swing Bed. On discharge after his antibiotic therapy, the plan is to place him on hospice per [facility] care. DISCHARGE MEDICATIONS: 1. Aspirin. 2. Multivitamins. 3. Aleve. 4. Toprol. 5. Clonazepam. 6. Spiriva. 7. Pravachol. 8. Pioglitazone. 9. Lisinopril. 10. Daliresp. 11. Glimepiride. 12. Pulmicort. 13. Brovana. 14. Tilly. 15. Gabapentin. 16. [place]-3 fatty acids. 17. Furosemide. 18. Chantix. 19. Lidocaine patch. 20. Colace. 21. Guaifenesin. 22. Levemir insulin. 23. DuoNeb. 24. Meropenem. 25. Prilosec. 26. Lyrica. 27. Saline nasal spray. Dr. Ansari is the collaborating physician available for consultation. #[id number] [facility]
== END 2017-05-27 10:37 | disposition swing bed (61) | DRG 871 ==
LOC: ER 13:37 → MS 17:19
PROVIDERS: ADMIT Nurse Practitioner; ATTEND Nurse Practitioner Acute Care
PROC: 30233N1 Transfusion of Nonautologous Red Blood Cells into Peripheral Vein, Percutaneous Approach (ICD-10-PCS; principal; 2017-05-23)
DX: A41.51 Sepsis due to Escherichia coli [E. coli] (principal); J18.9 Pneumonia, unspecified organism; N39.0 Urinary tract infection, site not specified; N17.9 Acute kidney failure, unspecified; B02.29 Other postherpetic nervous system involvement; J44.0 Chronic obstructive pulmonary disease with (acute) lower respiratory infection; E86.0 Dehydration; E83.42 Hypomagnesemia; E11.9 Type 2 diabetes mellitus without complications; D64.9 Anemia, unspecified; R29.6 Repeated falls; I11.9 Hypertensive heart disease without heart failure; E78.5 Hyperlipidemia, unspecified; F41.1 Generalized anxiety disorder; Z16.24 Resistance to multiple antibiotics; Z79.891 Long term (current) use of opiate analgesic; Z99.81 Dependence on supplemental oxygen; Z79.84 Long term (current) use of oral hypoglycemic drugs; Z79.1 Long term (current) use of non-steroidal anti-inflammatories (NSAID); Z79.82 Long term (current) use of aspirin

== ENCOUNTER 2017-05-27 10:43 | Inpatient (IN) | payer MEDICARE ==
[2017-05-27] MEDS ORDERED: MAGNESIUM HYDROXIDE 30 ML UD PO PRN (10:53)
[2017-05-27] MEDS ORDERED: ACETAMINOPHEN 500 MG TAB PO PRN (10:53)
[2017-05-27] MEDS ORDERED: SODIUM PHOS/BIPHOS ENEMA ADULT 133 ML BTTL PR PRN (10:53)
[2017-05-27] MEDS ORDERED: LEVALBUTEROL NEBS 1.25 MG/3 ML VIAL NEB PRN (10:53)
[2017-05-27] MEDS ORDERED: SODIUM CHLORIDE 0.65% NASAL SPRAY 45 ML BTTL BNAS PRN (10:56)
[2017-05-27] MEDS ORDERED: MEROPENEM 1 GM VIAL IVPB SCH (11:00)
[2017-05-27] MEDS ORDERED: IPRATROPIUM/ALBUTEROL 3 ML VIAL NEB ONE (11:12)
[2017-05-27] MEDS ORDERED: GLUCAGON INJ 1 MG VIAL SUBCU PRN (11:24)
[2017-05-27] MEDS ORDERED: DEXTROSE 50% 25 GM/50 ML SYG IV PRN (11:24)
[2017-05-27] MEDS: IPRATROPIUM/ALBUTEROL 3 ML VIAL NEB SCH ×3 (11:26→20:01)
[2017-05-27] MEDS: IV SET AND CAP CHANGE INJ INJ SCH (11:44)
[2017-05-27] MEDS: GABAPENTIN 300 MG CAP PO SCH ×2 (11:53→17:02)
[2017-05-27] MEDS: MEROPENEM 1 GM in SODIUM CHL 0.9% 50ML MIN-BAG+ 50 ML IVPB SCH ×2 (11:55→20:30)
[2017-05-27] MEDS: INSULIN LISPRO 100 UNITS/ML PEN SUBCU SCH ×3 (11:57→21:04)
[2017-05-27] MEDS: PREGABALIN 100 MG CAP PO SCH ×2 (16:09→20:36)
[2017-05-27] MEDS: GLIMEPIRIDE 2 MG TAB PO SCH (17:02)
[2017-05-27] MEDS: HYDROcodone 10MG/APAP 325MG 1 EA TAB PO PRN (17:02)
--- NOTE | 2017-05-27 17:48 | PCM.CORE ---
Physician DVT/VTE - Prophylaxis Currently: Patient already on anticoagulation therapy - Nurse DVT Assessment & Total Each Risk Factor Represents 2 Points: Age 60-74 DVT Assessment Score: 2 - 2 Moderate Risk Treatments: Early Ambulation *, Sequential Compression Device
--- NOTE | 2017-05-27 18:53 | HP ---
SUPERVISING PHYSICIAN: Shemar Ansari M.D. CHIEF COMPLAINT: Multidrug resistant urinary tract infection. HISTORY OF PRESENT ILLNESS: This is a 72 year-old male patient who came to the Emergency Room due to generalized weakness and falls and was admitted to acute care. Three days prior to admission, he had fallen several times and the weakness was in his legs, back and around his tailbone. He was x-rayed and it did not reveal any sort of sacral fracture. His labs showed an elevated white count of 15.7, hemoglobin 9.6 with platelet count 263. He also had an ABG that was basically within normal limits. Chemistries showed sodium 128, potassium 5.5, BUN 46, creatinine 1.88, glucose 291, lactic acid 2.4. Urinalysis was consistent with a urinary tract infection that was positive for nitrites. WBCs were 30 to 40 and urine bacteria 4+. He was admitted to the hospital and started on Merrem. He was given some fluids. His abdomen and pelvis CT showed pneumonia involving a portion of the right lower lobe. His sodium stabilized at 135, potassium was slightly high this morning at 5.8, but his creatinine was 0.96 with BUN of 24. He has a history of diabetes and his blood sugars were high and he was started on Levemir 10 units daily. Blood cultures as well as urine culture grew out Escherichia coli that was multidrug resistant, including the p.o. antibiotics but it showed sensitivity to Meropenem which he was on. His vital signs stabilized . His chest x-ray today still shows some atelectasis versus pneumonia, but he is responding well to the Merrem. Physical Therapy has been working with him for strengthening and conditioning, and was discharged from the Acute Care setting and now will be admitted to [facility]. PAST MEDICAL HISTORY: 1. Diabetes mellitus. 2. Chronic obstructive pulmonary disease on chronic oxygen therapy. 3. Hypertension. 4. Generalized anxiety disorder. 5. Herpes zoster. 6. Hypertensive heart disease. 7. Hyperlipidemia. PAST SURGICAL HISTORY: 1. Cholecystectomy. 2. Cataract removal. MEDICATIONS: 1. Gabapentin 600 mg p.o. q.i.d. 2. Furosemide 20 mg p.o. daily. 3. Wilson 5/325 1 tablet every 4 to 6 hours p.r.n. for pain. 4. Brovana 18 mcg inhaled in nebulizer b.i.d. 5. Budesonide 2.5 mg 1 ampule b.i.d. 6. Daliresp 500 mcg 1 tablet daily. 7. Glimepiride 4 mg p.o. b.i.d. 8. Lisinopril 20 mg daily. 9. Actos 45 mg daily. 10. Pravastatin 20 mg daily at bedtime. 11. Spiriva 2.5 mcg inhaled 2 puffs daily. 12. Clonazepam 1 mg half tab in the morning and 1 tab at h.s. 13. Aleve 220 mg p.o. q.h.s. 14. Multivitamins 1 tab daily. 15. Aspirin 325 mg p.o. daily. 16. [place]-3 fatty acids twice daily. ALLERGIES: METFORMIN WHICH REPORTEDLY CAUSES DIARRHEA. FAMILY HISTORY: Mother had lymphoma. SOCIAL HISTORY: The patient is a former smoker, but does not smoke any longer. No alcohol, no illicit drugs. He is . REVIEW OF SYSTEMS: CONSTITUTIONAL: No fever or chills. No recent weight loss or weight gain. HEENT: No headaches or vision changes, ear pain, throat pain or nasal congestion. RESPIRATORY: Positive for cough, shortness of breath. No pleuritic chest pain. CARDIOVASCULAR: No chest pain, palpitations, peripheral edema. GASTROINTESTINAL: No nausea, vomiting, diarrhea, constipation or abdominal pain. GENITOURINARY: No dysuria, frequency or flank pain. SKIN: No rashes, lesions or wounds. NEUROLOGIC: Positive for weakness. No syncope or paresthesias. ENDOCRINE: No polydipsia, polyuria or polyphagia, no heat or cold intolerance. HEMATOLOGIC: Positive for easy bruising. PHYSICAL EXAMINATION: VITAL SIGNS: Afebrile, pulse rate 67, blood pressure 112/72, respiratory rate 20, O2 sat is 97% on 2 liters nasal cannula. GENERAL: This is a 72 year-old male patient who is lying in his hospital bed. He is in no acute distress. He does have an essential tremor. HEENT: Normocephalic and atraumatic. Pupils are equal and reactive. Oropharynx is clear. NECK: Supple without mass. RESPIRATORY: Essentially clear to auscultation bilaterally. He is diminished at the bases. CHEST: There is equal rise and fall of the chest with inspiration and expiration. CARDIOVASCULAR: Regular rate and rhythm. ABDOMEN: Soft, nondistended, non-tender. Bowel sounds are positive. GENITOURINARY: Deferred. EXTREMITIES: No cyanosis or clubbing. He has a trace of lower extremity pedal edema bilaterally. Pulses are palpable at +1. He is very tender to palpation on his left thigh due to shingles that he had several weeks ago. NEUROLOGIC: He is awake, alert and oriented times three. He moves all extremities. He does have an essential tremor. LABORATORY: There are no labs and films to report at this time. ASSESSMENT: 1. Sepsis secondary to urinary tract infection that has grown out a multidrug resistant Escherichia coli in both blood and urine. He is presently on Merrem which cultures show a sensitivity to. There are no p.o. antibiotics to cover his infection. He will need Swing Bed admission for IV antibiotic therapy as well as physical therapy for strengthening and conditioning. 2. Right lower lobe pneumonia. 3. Acute kidney injury secondary to dehydration that has improved. 4. Chronic obstructive pulmonary disease without an acute exacerbation. 5. Diabetes mellitus type 2. 6. Anemia. 7. Postherpetic neuropathy. 8. Hypomagnesemia that has now normalized. PLAN: We will admit the patient to Swing Bed. He will continue with his Merrem for approximately 7 to 10 days. His first day of Merrem was on . I have also consulted Physical Therapy for strengthening and conditioning. I have also started Accu-Cheks for sliding scale insulin and we may need to adjust his Levemir based on his fasting blood sugars. After discharge, the plan is for him to go home on [facility]. He will need a followup with his primary care physician, Dr. Valderrama, after discharge. We will need to get in touch with [facility] this week prior to discharge so they can set up his home with a hospital bed and other needed discharge items so they will be available when he goes home. Dr. Ansari is the collaborating physician available for consultation. #[id number] [facility]
[2017-05-27] MEDS: BUDESONIDE NEBS 0.5 MG/2 ML VIAL NEB SCH (20:01)
[2017-05-27] MEDS: ARFORMOTEROL TARTRATE 15 MCG/2 ML NEB NEB SCH (20:01)
[2017-05-27] MEDS ORDERED: SODIUM CHL 0.9% 50ML MIN-BAG+ 50 ML IVPB ONE (20:09)
[2017-05-27] MEDS ORDERED: MEROPENEM 1 GM VIAL IVPB ONE (20:11)
[2017-05-27] MEDS: SODIUM CHLORIDE 0.9% (FLUSH) 10 ML SYG IV SCH (20:30)
[2017-05-27] MEDS: guaiFENesin ER TAB 600 MG TAB PO SCH (20:36)
[2017-05-27] MEDS: NAPROXEN SODIUM 220 MG TAB PO SCH (20:36)
[2017-05-27] MEDS: PRAVASTATIN SODIUM 20 MG TAB PO SCH (20:36)
[2017-05-27] MEDS: VARENICLINE 0.5 MG TAB PO SCH (20:36)
[2017-05-27] MEDS ORDERED: GABAPENTIN 400 MG CAP ONE (22:58)
[2017-05-27] MEDS ORDERED: GABAPENTIN 100 MG CAP ONE (22:59)
[2017-05-28] MEDS: GABAPENTIN 300 MG CAP PO SCH ×4 (00:06→21:46)
[2017-05-28] MEDS ORDERED: MEROPENEM 1 GM VIAL IVPB ONE ×3 (04:08→21:01)
[2017-05-28] MEDS ORDERED: OMEPRAZOLE CAP 20 MG CAP ONE (04:08)
[2017-05-28] MEDS ORDERED: SODIUM CHL 0.9% 50ML MIN-BAG+ 50 ML IVPB ONE ×3 (04:08→21:00)
[2017-05-28] MEDS: MEROPENEM 1 GM in SODIUM CHL 0.9% 50ML MIN-BAG+ 50 ML IVPB SCH ×3 (04:19→21:45)
[2017-05-28] MEDS ORDERED: GABAPENTIN 100 MG CAP ONE (05:14)
[2017-05-28] MEDS ORDERED: GABAPENTIN 400 MG CAP ONE (05:14)
[2017-05-28] MEDS: OMEPRAZOLE CAP 20 MG CAP PO SCH (06:02)
[2017-05-28] MEDS: INSULIN LISPRO 100 UNITS/ML PEN SUBCU SCH ×4 (08:00→22:01)
[2017-05-28] MEDS: GLIMEPIRIDE 2 MG TAB PO SCH ×2 (08:04→17:13)
[2017-05-28] MEDS ORDERED: NON-FORMULARY MEDICATION 1 EA MIS (Lidocaine 5% Patch [Lidoderm Patch] 1 EA) TOP SCH (09:00)
[2017-05-28] MEDS: IPRATROPIUM/ALBUTEROL 3 ML VIAL NEB SCH ×4 (09:08→19:40)
[2017-05-28] MEDS: NON-FORMULARY MEDICATION 1 EA MIS (Tiotropium Bromide Monohydrate [Spiriva Respimat] 2 INH IN SCH (09:08)
[2017-05-28] MEDS: BUDESONIDE NEBS 0.5 MG/2 ML VIAL NEB SCH ×2 (09:08→19:40)
[2017-05-28] MEDS: ARFORMOTEROL TARTRATE 15 MCG/2 ML NEB NEB SCH ×2 (09:08→19:40)
[2017-05-28] MEDS: INSULIN DETEMIR 100 UNITS/ML PEN SUBCU SCH (09:27)
[2017-05-28] MEDS: PIOGLITAZONE 15 MG TAB PO SCH (09:55)
[2017-05-28] MEDS: LISINOPRIL 10 MG TAB PO SCH (09:55)
[2017-05-28] MEDS: PREGABALIN 100 MG CAP PO SCH (09:56)
[2017-05-28] MEDS: FUROSEMIDE 40 MG TAB PO SCH (09:56)
[2017-05-28] MEDS: DOCUSATE SODIUM 100 MG CAP PO SCH (09:56)
[2017-05-28] MEDS: guaiFENesin ER TAB 600 MG TAB PO SCH ×2 (09:56→21:46)
[2017-05-28] MEDS: METOPROLOL SUCCINATE XL 50 MG TAB PO SCH (09:56)
[2017-05-28] MEDS: VARENICLINE 0.5 MG TAB PO SCH ×2 (09:56→21:45)
[2017-05-28] MEDS: SOD POLYSTYRENE SULFONATE 15 GM/60 ML BTTL PO SCH (09:57)
[2017-05-28] MEDS: ENOXAPARIN SODIUM 40 MG/0.4 ML SYG SUBCU SCH (09:58)
[2017-05-28] MEDS: NON-FORMULARY MEDICATION 1 EA MIS (Roflumilast [Daliresp] 500 MCG) PO SCH (09:59)
[2017-05-28] MEDS: SODIUM CHLORIDE 0.9% (FLUSH) 10 ML SYG IV SCH ×2 (09:59→21:44)
[2017-05-28] MEDS: ASPIRIN TABLET 325 MG TAB PO SCH (09:59)
[2017-05-28] MEDS: HYDROcodone 10MG/APAP 325MG 1 EA TAB PO PRN ×3 (10:43→21:46)
--- NOTE | 2017-05-28 17:44 | PN ---
DATE: 05/28/17 SUBJECTIVE: The patient is now day 1 of continued Swing Bed treatment and rehabilitation. The patient is very weak and is having difficulty getting around. He is now recuperating from a very serious illness requiring several days in the hospital on Med/Surg. He was seen initially on 05/22 with a temperature of 101.9, elevated lactic acid of 2.4, white count of 15,700, sodium 128, BUN 46, creatinine elevated at 1.88. Extremely ill with what has turned out to be a significant urinary tract infection with pyelonephritis and bacteremia. Hemoglobin subsequently dropped down to 7.7 requiring 2 units of packed red blood cells. Blood cultures and urine cultures all grew an Escherichia coli with multiple resistance and is placed on Meropenem today to continue the ongoing treatment course. The patient's potassium is elevated at 6.3 and a dose of Kayexalate is also being given today. X-ray also has shown evidence of a right lower lobe pneumonia. OBJECTIVE: Afebrile, blood pressure 110/59, pulse oximetry 95% on 2 liters. LUNGS: Have a few bibasilar rhonchi clearing with deep breaths. HEART: Tones are fairly regular. ABDOMEN: Soft. The patient is a little drowsy-headed as he answers questions. He is not very active and is encouraged to increase his activity level. Continue with SCD as well as Lovenox DVT prophylaxis. Encouraged to breathe deeply and to actively contract and relax his lower extremities to assist with DVT prevention. LABORATORY: Chemistries were done today and showed potassium up to 6.3 with a gradual increase noted. Kayexalate given. BUN 28, creatinine 1.05, glucose elevated at 235 fasting this morning. ASSESSMENT: 1. Acute urosepsis with bacteremia in 4 tubes of cultures obtained as well as cultures positive on urine for Escherichia coli with multiple resistance noted. 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 The patient being treated with Meropenem parenterally for completion of a 7 day course because of the bacteremia. 2. Acute pyelonephritis noted on CT scan no doubt contributing to the severity of the urosepsis presentation. 3. Acute kidney injury secondary to prerenal azotemia. 4. Right lower lobe pneumonia noted on x-ray with continued treatment. 5. Chronic obstructive pulmonary disease currently stable at this time. 6. Chronic diabetes mellitus type 2. 7. Anemia having recently received 2 packed units of red blood cells. 8. Significant symptomatic postherpetic neuropathy involving the left groin and anterior thigh to the low back. 9. Hypomagnesemia initially noted showing improvement. PLAN: The patient has been transferred from Med/Surg to Swing Bed for continuation of his IV parenteral therapy for a total of 10 days. This treatment should eventually go up until 06/03/17. Physical Therapy will assist with strengthening and continued rehabilitation and conditioning while on Swing Bed status. After discharge, we are planning to continue his ongoing care at home with [facility] intervention. He will be followed-up closely by Dr. Valderrama in the clinic after his discharge. #[id number] [facility]
[2017-05-28] MEDS: PRAVASTATIN SODIUM 20 MG TAB PO SCH (21:30)
[2017-05-28] MEDS: NAPROXEN SODIUM 220 MG TAB PO SCH (21:45)
[2017-05-29] MEDS ORDERED: MEROPENEM 500 MG VIAL IVPB ONE (04:25)
[2017-05-29] MEDS ORDERED: SODIUM CHLORIDE 0.9% 50ML 50 ML ONE (04:26)
[2017-05-29] MEDS: MEROPENEM 1 GM in SODIUM CHL 0.9% 50ML MIN-BAG+ 50 ML IVPB SCH ×3 (04:30→21:01)
[2017-05-29] MEDS: OMEPRAZOLE CAP 20 MG CAP PO SCH (06:29)
[2017-05-29] MEDS: NON-FORMULARY MEDICATION 1 EA MIS (Tiotropium Bromide Monohydrate [Spiriva Respimat] 2 INH IN SCH (07:12)
[2017-05-29] MEDS: ARFORMOTEROL TARTRATE 15 MCG/2 ML NEB NEB SCH ×2 (07:12→21:26)
[2017-05-29] MEDS: IPRATROPIUM/ALBUTEROL 3 ML VIAL NEB SCH ×4 (07:12→20:10)
[2017-05-29] MEDS: BUDESONIDE NEBS 0.5 MG/2 ML VIAL NEB SCH ×2 (07:12→20:10)
[2017-05-29] MEDS: INSULIN LISPRO 100 UNITS/ML PEN SUBCU SCH ×4 (07:22→21:25)
[2017-05-29] MEDS: GLIMEPIRIDE 2 MG TAB PO SCH ×2 (08:23→18:00)
[2017-05-29] MEDS ORDERED: SODIUM CHL 0.9% 50ML MIN-BAG+ 50 ML IVPB ONE ×2 (08:58→20:47)
[2017-05-29] MEDS ORDERED: MEROPENEM 1 GM VIAL IVPB ONE ×2 (09:00→20:48)
[2017-05-29] MEDS: INSULIN DETEMIR 100 UNITS/ML PEN SUBCU SCH (09:52)
[2017-05-29] MEDS: guaiFENesin ER TAB 600 MG TAB PO SCH ×2 (10:01→21:09)
[2017-05-29] MEDS: SOD POLYSTYRENE SULFONATE 15 GM/60 ML BTTL PO SCH (10:01)
[2017-05-29] MEDS: LISINOPRIL 10 MG TAB PO SCH (10:01)
[2017-05-29] MEDS: PIOGLITAZONE 15 MG TAB PO SCH (10:01)
[2017-05-29] MEDS: ASPIRIN TABLET 325 MG TAB PO SCH (10:02)
[2017-05-29] MEDS: METOPROLOL SUCCINATE XL 50 MG TAB PO SCH (10:02)
[2017-05-29] MEDS: FUROSEMIDE 40 MG TAB PO SCH (10:02)
[2017-05-29] MEDS: DOCUSATE SODIUM 100 MG CAP PO SCH (10:02)
[2017-05-29] MEDS: VARENICLINE 0.5 MG TAB PO SCH ×2 (10:02→21:09)
[2017-05-29] MEDS: GABAPENTIN 300 MG CAP PO SCH ×3 (10:03→21:08)
[2017-05-29] MEDS: ENOXAPARIN SODIUM 40 MG/0.4 ML SYG SUBCU SCH (10:03)
[2017-05-29] MEDS: NON-FORMULARY MEDICATION 1 EA MIS (Roflumilast [Daliresp] 500 MCG) PO SCH (10:04)
[2017-05-29] MEDS: SODIUM CHLORIDE 0.9% (FLUSH) 10 ML SYG IV SCH ×2 (10:04→21:09)
[2017-05-29] MEDS: HYDROcodone 10MG/APAP 325MG 1 EA TAB PO PRN ×2 (14:36→23:13)
--- NOTE | 2017-05-29 20:52 | PN ---
DATE: 05/29/17 SUBJECTIVE: The patient's condition is stable at this time. He is continuing on the Meropenem and anticipate a completion of his course within the next 4 or 5 days. The patient does have a significant Escherichia coli bacteremia and urosepsis with an extended spectrum beta lactam real estate rep organism requiring vigorous and adequate treatment to help eradicate completely. PLAN: His condition was discussed at length with insurance representatives and the peer to peer discussion earlier today, and they agree fully that the patient is requiring inpatient care and now Swing Bed status, and will continue to require this until the completion of the parenteral course. [id number] [facility]
[2017-05-29] MEDS: PRAVASTATIN SODIUM 20 MG TAB PO SCH (21:08)
[2017-05-29] MEDS: NAPROXEN SODIUM 220 MG TAB PO SCH (21:09)
[2017-05-30] MEDS ORDERED: SODIUM CHL 0.9% 50ML MIN-BAG+ 50 ML IVPB ONE ×3 (01:17→20:15)
[2017-05-30] MEDS ORDERED: MEROPENEM 1 GM VIAL IVPB ONE ×3 (01:17→20:16)
[2017-05-30] MEDS: MEROPENEM 1 GM in SODIUM CHL 0.9% 50ML MIN-BAG+ 50 ML IVPB SCH ×3 (04:29→20:25)
[2017-05-30] MEDS: SODIUM CHLORIDE 0.9% (FLUSH) 10 ML SYG IV SCH ×3 (04:29→20:26)
[2017-05-30] MEDS: OMEPRAZOLE CAP 20 MG CAP PO SCH (06:46)
[2017-05-30] MEDS: ARFORMOTEROL TARTRATE 15 MCG/2 ML NEB NEB SCH ×2 (08:09→21:55)
[2017-05-30] MEDS: NON-FORMULARY MEDICATION 1 EA MIS (Tiotropium Bromide Monohydrate [Spiriva Respimat] 2 INH IN SCH (08:09)
[2017-05-30] MEDS: BUDESONIDE NEBS 0.5 MG/2 ML VIAL NEB SCH ×2 (08:09→21:55)
[2017-05-30] MEDS: IPRATROPIUM/ALBUTEROL 3 ML VIAL NEB SCH ×4 (08:09→21:55)
[2017-05-30] MEDS: INSULIN LISPRO 100 UNITS/ML PEN SUBCU SCH ×4 (08:20→21:15)
[2017-05-30] MEDS: NON-FORMULARY MEDICATION 1 EA MIS (Roflumilast [Daliresp] 500 MCG) PO SCH (09:23)
[2017-05-30] MEDS: ASPIRIN TABLET 325 MG TAB PO SCH (09:24)
[2017-05-30] MEDS: PIOGLITAZONE 15 MG TAB PO SCH (09:24)
[2017-05-30] MEDS: FUROSEMIDE 40 MG TAB PO SCH (09:25)
[2017-05-30] MEDS: METOPROLOL SUCCINATE XL 50 MG TAB PO SCH (09:25)
[2017-05-30] MEDS: GLIMEPIRIDE 2 MG TAB PO SCH ×2 (09:25→17:18)
[2017-05-30] MEDS: VARENICLINE 0.5 MG TAB PO SCH ×2 (09:25→21:09)
[2017-05-30] MEDS: guaiFENesin ER TAB 600 MG TAB PO SCH ×2 (09:26→21:09)
[2017-05-30] MEDS: LISINOPRIL 10 MG TAB PO SCH (09:26)
[2017-05-30] MEDS: INSULIN DETEMIR 100 UNITS/ML PEN SUBCU SCH (10:10)
[2017-05-30] MEDS: DOCUSATE SODIUM 100 MG CAP PO SCH (10:25)
[2017-05-30] MEDS: GABAPENTIN 300 MG CAP PO SCH ×3 (10:25→21:09)
[2017-05-30] MEDS: ENOXAPARIN SODIUM 40 MG/0.4 ML SYG SUBCU SCH (10:25)
[2017-05-30] MEDS: HYDROcodone 10MG/APAP 325MG 1 EA TAB PO PRN ×2 (10:41→19:15)
[2017-05-30] MEDS: IV SET AND CAP CHANGE INJ INJ SCH (11:39)
[2017-05-30] MEDS: NAPROXEN SODIUM 220 MG TAB PO SCH (21:09)
[2017-05-30] MEDS: PRAVASTATIN SODIUM 20 MG TAB PO SCH (21:12)
[2017-05-31] MEDS ORDERED: MEROPENEM 1 GM VIAL IVPB ONE ×3 (01:54→20:04)
[2017-05-31] MEDS ORDERED: SODIUM CHL 0.9% 50ML MIN-BAG+ 50 ML IVPB ONE ×3 (01:54→20:04)
[2017-05-31] MEDS: MEROPENEM 1 GM in SODIUM CHL 0.9% 50ML MIN-BAG+ 50 ML IVPB SCH ×3 (04:13→20:16)
[2017-05-31] MEDS: OMEPRAZOLE CAP 20 MG CAP PO SCH (06:14)
[2017-05-31] MEDS: IPRATROPIUM/ALBUTEROL 3 ML VIAL NEB SCH (07:16)
[2017-05-31] MEDS: NON-FORMULARY MEDICATION 1 EA MIS (Tiotropium Bromide Monohydrate [Spiriva Respimat] 2 INH IN SCH (07:16)
[2017-05-31] MEDS: ARFORMOTEROL TARTRATE 15 MCG/2 ML NEB NEB SCH ×2 (07:16→20:20)
[2017-05-31] MEDS: BUDESONIDE NEBS 0.5 MG/2 ML VIAL NEB SCH ×2 (07:16→20:20)
[2017-05-31] MEDS: INSULIN LISPRO 100 UNITS/ML PEN SUBCU SCH ×4 (07:58→20:53)
[2017-05-31] MEDS: GLIMEPIRIDE 2 MG TAB PO SCH ×2 (08:30→18:02)
[2017-05-31] MEDS: ASPIRIN TABLET 325 MG TAB PO SCH (08:55)
[2017-05-31] MEDS: PIOGLITAZONE 15 MG TAB PO SCH (08:55)
[2017-05-31] MEDS: guaiFENesin ER TAB 600 MG TAB PO SCH ×2 (08:56→20:55)
[2017-05-31] MEDS: GABAPENTIN 300 MG CAP PO SCH ×3 (08:56→20:54)
[2017-05-31] MEDS: DOCUSATE SODIUM 100 MG CAP PO SCH (08:56)
[2017-05-31] MEDS: ENOXAPARIN SODIUM 40 MG/0.4 ML SYG SUBCU SCH (08:56)
[2017-05-31] MEDS: SODIUM CHLORIDE 0.9% (FLUSH) 10 ML SYG IV SCH ×2 (08:58→20:15)
[2017-05-31] MEDS: INSULIN DETEMIR 100 UNITS/ML PEN SUBCU SCH (08:59)
[2017-05-31] MEDS: VARENICLINE 0.5 MG TAB PO SCH ×2 (08:59→20:52)
[2017-05-31] MEDS: NON-FORMULARY MEDICATION 1 EA MIS (Roflumilast [Daliresp] 500 MCG) PO SCH (08:59)
[2017-05-31] MEDS: FUROSEMIDE 40 MG TAB PO SCH (09:21)
[2017-05-31] MEDS: LISINOPRIL 10 MG TAB PO SCH (09:22)
[2017-05-31] MEDS: METOPROLOL SUCCINATE XL 50 MG TAB PO SCH (10:37)
[2017-05-31] MEDS: BIFIDOBACTERIUM INFANTIS 4 MG CAP PO SCH ×2 (12:21→20:52)
[2017-05-31] MEDS: HYDROcodone 10MG/APAP 325MG 1 EA TAB PO PRN (12:33)
[2017-05-31] MEDS: NAPROXEN SODIUM 220 MG TAB PO SCH (20:51)
[2017-05-31] MEDS: PRAVASTATIN SODIUM 20 MG TAB PO SCH (20:55)
[2017-06-01] MEDS ORDERED: SODIUM CHL 0.9% 50ML MIN-BAG+ 50 ML IVPB ONE ×3 (04:07→19:27)
[2017-06-01] MEDS ORDERED: MEROPENEM 1 GM VIAL IVPB ONE ×3 (04:07→19:27)
[2017-06-01] MEDS: MEROPENEM 1 GM in SODIUM CHL 0.9% 50ML MIN-BAG+ 50 ML IVPB SCH ×3 (04:10→20:13)
[2017-06-01] MEDS: OMEPRAZOLE CAP 20 MG CAP PO SCH (06:34)
[2017-06-01] MEDS: ARFORMOTEROL TARTRATE 15 MCG/2 ML NEB NEB SCH ×2 (08:25→19:55)
[2017-06-01] MEDS: NON-FORMULARY MEDICATION 1 EA MIS (Tiotropium Bromide Monohydrate [Spiriva Respimat] 2 INH IN SCH (08:25)
[2017-06-01] MEDS: BUDESONIDE NEBS 0.5 MG/2 ML VIAL NEB SCH ×2 (08:25→19:55)
[2017-06-01] MEDS: INSULIN LISPRO 100 UNITS/ML PEN SUBCU SCH ×4 (09:01→21:00)
[2017-06-01] MEDS: INSULIN DETEMIR 100 UNITS/ML PEN SUBCU SCH (09:02)
[2017-06-01] MEDS: ASPIRIN TABLET 325 MG TAB PO SCH (09:11)
[2017-06-01] MEDS: PIOGLITAZONE 15 MG TAB PO SCH (09:11)
[2017-06-01] MEDS: VARENICLINE 0.5 MG TAB PO SCH ×2 (09:11→20:14)
[2017-06-01] MEDS: guaiFENesin ER TAB 600 MG TAB PO SCH ×2 (09:12→20:17)
[2017-06-01] MEDS: GLIMEPIRIDE 2 MG TAB PO SCH ×2 (09:12→16:39)
[2017-06-01] MEDS: DOCUSATE SODIUM 100 MG CAP PO SCH (09:12)
[2017-06-01] MEDS: BIFIDOBACTERIUM INFANTIS 4 MG CAP PO SCH ×2 (09:12→20:14)
[2017-06-01] MEDS: LISINOPRIL 10 MG TAB PO SCH (09:12)
[2017-06-01] MEDS: ENOXAPARIN SODIUM 40 MG/0.4 ML SYG SUBCU SCH (09:13)
[2017-06-01] MEDS: SODIUM CHLORIDE 0.9% (FLUSH) 10 ML SYG IV SCH ×2 (09:19→20:13)
[2017-06-01] MEDS: METOPROLOL SUCCINATE XL 50 MG TAB PO SCH (11:34)
[2017-06-01] MEDS: GABAPENTIN 300 MG CAP PO SCH ×3 (11:35→20:18)
[2017-06-01] MEDS: NON-FORMULARY MEDICATION 1 EA MIS (Roflumilast [Daliresp] 500 MCG) PO SCH (11:36)
[2017-06-01] MEDS: NAPROXEN SODIUM 220 MG TAB PO SCH (20:15)
[2017-06-01] MEDS: PRAVASTATIN SODIUM 20 MG TAB PO SCH (20:15)
[2017-06-02] MEDS ORDERED: MEROPENEM 1 GM VIAL IVPB ONE ×3 (03:55→19:32)
[2017-06-02] MEDS ORDERED: SODIUM CHL 0.9% 50ML MIN-BAG+ 50 ML IVPB ONE ×3 (03:55→19:30)
[2017-06-02] MEDS: MEROPENEM 1 GM in SODIUM CHL 0.9% 50ML MIN-BAG+ 50 ML IVPB SCH ×3 (04:22→20:09)
[2017-06-02] MEDS: OMEPRAZOLE CAP 20 MG CAP PO SCH (06:41)
[2017-06-02] MEDS: INSULIN LISPRO 100 UNITS/ML PEN SUBCU SCH ×5 (07:38→21:19)
[2017-06-02] MEDS: GLIMEPIRIDE 2 MG TAB PO SCH ×2 (08:22→17:18)
[2017-06-02] MEDS: NON-FORMULARY MEDICATION 1 EA MIS (Tiotropium Bromide Monohydrate [Spiriva Respimat] 2 INH IN SCH (09:06)
[2017-06-02] MEDS: ARFORMOTEROL TARTRATE 15 MCG/2 ML NEB NEB SCH ×2 (09:06→20:26)
[2017-06-02] MEDS: BUDESONIDE NEBS 0.5 MG/2 ML VIAL NEB SCH ×2 (09:07→20:26)
[2017-06-02] MEDS: ENOXAPARIN SODIUM 40 MG/0.4 ML SYG SUBCU SCH (09:46)
[2017-06-02] MEDS: VARENICLINE 0.5 MG TAB PO SCH ×2 (09:47→21:16)
[2017-06-02] MEDS: guaiFENesin ER TAB 600 MG TAB PO SCH ×2 (09:47→21:17)
[2017-06-02] MEDS: PIOGLITAZONE 15 MG TAB PO SCH (09:47)
[2017-06-02] MEDS: GABAPENTIN 300 MG CAP PO SCH ×4 (09:48→21:17)
[2017-06-02] MEDS: BIFIDOBACTERIUM INFANTIS 4 MG CAP PO SCH ×2 (09:48→21:16)
[2017-06-02] MEDS: DOCUSATE SODIUM 100 MG CAP PO SCH (09:49)
[2017-06-02] MEDS: LISINOPRIL 10 MG TAB PO SCH (09:49)
[2017-06-02] MEDS: NON-FORMULARY MEDICATION 1 EA MIS (Roflumilast [Daliresp] 500 MCG) PO SCH (09:49)
[2017-06-02] MEDS: INSULIN DETEMIR 100 UNITS/ML PEN SUBCU SCH (09:50)
[2017-06-02] MEDS: METOPROLOL SUCCINATE XL 50 MG TAB PO SCH (09:59)
[2017-06-02] MEDS: ASPIRIN TABLET 325 MG TAB PO SCH (09:59)
[2017-06-02] MEDS: SODIUM CHLORIDE 0.9% (FLUSH) 10 ML SYG IV SCH ×2 (10:00→21:17)
[2017-06-02] MEDS ORDERED: HYDROcodone 5MG/APAP 325MG 1 EA TAB PO PRN (15:13)
[2017-06-02] MEDS ORDERED: PREGABALIN 100 MG CAP ONE ×2 (15:39→19:31)
[2017-06-02] MEDS: PREGABALIN 100 MG CAP PO SCH ×2 (15:43→21:17)
[2017-06-02] MEDS: HYDROcodone 10MG/APAP 325MG 1 EA TAB PO PRN (15:44)
[2017-06-02] MEDS: IV SET AND CAP CHANGE INJ INJ SCH (20:09)
[2017-06-02] MEDS: NAPROXEN SODIUM 220 MG TAB PO SCH (21:17)
[2017-06-02] MEDS: PRAVASTATIN SODIUM 20 MG TAB PO SCH (21:17)
[2017-06-03] MEDS ORDERED: MEROPENEM 1 GM VIAL IVPB ONE ×3 (02:19→20:04)
[2017-06-03] MEDS ORDERED: SODIUM CHL 0.9% 50ML MIN-BAG+ 50 ML IVPB ONE ×3 (02:19→20:02)
[2017-06-03] MEDS: MEROPENEM 1 GM in SODIUM CHL 0.9% 50ML MIN-BAG+ 50 ML IVPB SCH ×3 (04:10→20:13)
[2017-06-03] MEDS: OMEPRAZOLE CAP 20 MG CAP PO SCH (06:25)
[2017-06-03] MEDS: INSULIN LISPRO 100 UNITS/ML PEN SUBCU SCH ×4 (08:10→21:17)
[2017-06-03] MEDS: GLIMEPIRIDE 2 MG TAB PO SCH ×2 (08:32→16:58)
[2017-06-03] MEDS: HYDROcodone 10MG/APAP 325MG 1 EA TAB PO PRN ×2 (08:41→18:16)
[2017-06-03] MEDS: NON-FORMULARY MEDICATION 1 EA MIS (Tiotropium Bromide Monohydrate [Spiriva Respimat] 2 INH IN SCH (08:50)
[2017-06-03] MEDS: ARFORMOTEROL TARTRATE 15 MCG/2 ML NEB NEB SCH ×2 (08:50→19:49)
[2017-06-03] MEDS: BUDESONIDE NEBS 0.5 MG/2 ML VIAL NEB SCH ×2 (08:50→19:49)
[2017-06-03] MEDS: INSULIN DETEMIR 100 UNITS/ML PEN SUBCU SCH (09:41)
[2017-06-03] MEDS: guaiFENesin ER TAB 600 MG TAB PO SCH ×2 (09:42→20:36)
[2017-06-03] MEDS: PIOGLITAZONE 15 MG TAB PO SCH (09:43)
[2017-06-03] MEDS: ASPIRIN TABLET 325 MG TAB PO SCH (09:43)
[2017-06-03] MEDS: BIFIDOBACTERIUM INFANTIS 4 MG CAP PO SCH ×2 (09:43→20:35)
[2017-06-03] MEDS: GABAPENTIN 300 MG CAP PO SCH ×4 (09:43→20:36)
[2017-06-03] MEDS: DOCUSATE SODIUM 100 MG CAP PO SCH (09:43)
[2017-06-03] MEDS: PREGABALIN 100 MG CAP PO SCH ×2 (09:43→20:35)
[2017-06-03] MEDS: METOPROLOL SUCCINATE XL 50 MG TAB PO SCH (09:43)
[2017-06-03] MEDS: LISINOPRIL 10 MG TAB PO SCH (09:43)
[2017-06-03] MEDS: VARENICLINE 0.5 MG TAB PO SCH ×2 (09:43→20:35)
[2017-06-03] MEDS: NON-FORMULARY MEDICATION 1 EA MIS (Roflumilast [Daliresp] 500 MCG) PO SCH (09:44)
[2017-06-03] MEDS: ENOXAPARIN SODIUM 40 MG/0.4 ML SYG SUBCU SCH (09:44)
[2017-06-03] MEDS: SODIUM CHLORIDE 0.9% (FLUSH) 10 ML SYG IV SCH ×2 (09:44→20:36)
[2017-06-03] MEDS: NAPROXEN SODIUM 220 MG TAB PO SCH (20:34)
[2017-06-03] MEDS: PRAVASTATIN SODIUM 20 MG TAB PO SCH (20:36)
[2017-06-04] MEDS: HYDROcodone 10MG/APAP 325MG 1 EA TAB PO PRN ×3 (03:37→17:10)
[2017-06-04] MEDS: OMEPRAZOLE CAP 20 MG CAP PO SCH (06:31)
[2017-06-04] MEDS: INSULIN LISPRO 100 UNITS/ML PEN SUBCU SCH ×3 (08:06→17:09)
[2017-06-04] MEDS: GLIMEPIRIDE 2 MG TAB PO SCH ×2 (08:27→17:11)
[2017-06-04] MEDS: ARFORMOTEROL TARTRATE 15 MCG/2 ML NEB NEB SCH (08:43)
[2017-06-04] MEDS: BUDESONIDE NEBS 0.5 MG/2 ML VIAL NEB SCH (08:43)
[2017-06-04] MEDS: NON-FORMULARY MEDICATION 1 EA MIS (Tiotropium Bromide Monohydrate [Spiriva Respimat] 2 INH IN SCH (09:04)
[2017-06-04 09:27] VITALS: BP 96/57; TEMP 97.6
[2017-06-04] MEDS: ENOXAPARIN SODIUM 40 MG/0.4 ML SYG SUBCU SCH (10:24)
[2017-06-04] MEDS: NON-FORMULARY MEDICATION 1 EA MIS (Roflumilast [Daliresp] 500 MCG) PO SCH (10:25)
[2017-06-04] MEDS: PIOGLITAZONE 15 MG TAB PO SCH (10:25)
[2017-06-04] MEDS: PREGABALIN 100 MG CAP PO SCH (10:26)
[2017-06-04] MEDS: VARENICLINE 0.5 MG TAB PO SCH (10:26)
[2017-06-04] MEDS: ASPIRIN TABLET 325 MG TAB PO SCH (10:26)
[2017-06-04] MEDS: LISINOPRIL 10 MG TAB PO SCH (10:26)
[2017-06-04] MEDS: DOCUSATE SODIUM 100 MG CAP PO SCH (10:26)
[2017-06-04] MEDS: GABAPENTIN 300 MG CAP PO SCH ×3 (10:27→17:10)
[2017-06-04] MEDS: INSULIN DETEMIR 100 UNITS/ML PEN SUBCU SCH (10:27)
[2017-06-04] MEDS: guaiFENesin ER TAB 600 MG TAB PO SCH (10:27)
[2017-06-04] MEDS: METOPROLOL SUCCINATE XL 50 MG TAB PO SCH (10:27)
[2017-06-04] MEDS: BIFIDOBACTERIUM INFANTIS 4 MG CAP PO SCH (10:27)
[2017-06-04] MEDS: SODIUM CHLORIDE 0.9% (FLUSH) 10 ML SYG IV SCH (10:31)
[2017-06-04 10:50] VITALS: O2SAT 95
--- NOTE | 2017-06-14 11:41 | DS ---
SUPERVISING PHYSICIAN: Shemar Ansari MD DISCHARGE DIAGNOSIS: 1. Sepsis secondary to urinary tract infection that has grown out multidrug resistant Escherichia coli, both in blood in urine. He has presently finished a 10 day course of Merrem, which cultures showed sensitivity to. There were no p.o. antibiotics to cover this infection, so he was placed on Swing Bed admission for antibiotic therapy as well as physical therapy for strengthening and conditioning. 2. Right lower lobe pneumonia. 3. Acute kidney injury secondary to dehydration, improved. 4. Chronic obstructive pulmonary disease. 5. Diabetes mellitus, type 2. 6. Anemia. 7. Postherpetic neuropathy. 8. Hypomagnesemia, now normalized. HISTORY OF PRESENT ILLNESS: This is a 72 year-old male patient who initially came to the Emergency Room on 05/22/17 due to generalized weakness and falls. He was admitted to the hospital. He had fallen several days prior to his admission. He had weakness all over, mostly in his legs, back and around his tailbone. His x-rays did not reveal any sort of sacral fracture. His ABG was within normal limits. Sodium was low at 128 with a potassium slightly elevated at 5.5. BUN was 46, creatinine 1.88. Glucose was 291, lactic acid 2.0. Urinalysis was positive for urinary tract infection. Urine WBCs were 30 to 40 and urine bacteria was 4+ and also positive for nitrates. He has a history of resistant urinary tract infections and was started on Merrem. He was also given some fluids. He was also shown to have pneumonia per CT involving the right lower lobe. Over the course of his hospital stay, he stabilized and was discharged from Acute Care and placed in Swing Bed status to continue his meropenem due to the blood cultures as well as urine cultures grew out Escherichia coli that was multidrug resistant including p.o. antibiotics. They both showed sensitivity to meropenem and he was continued on that for his pneumonia as well as his urinary tract infection. Physical therapy also worked with him during his stay. He has completed his 10 days of meropenem and he will be discharged home. DISCHARGE PLAN: The patient will be discharged home in fair condition. Once he gets home, he will be placed on [facility]. He will need a followup with his primary care physician at some point after his discharge. [facility] has set up his hospital bed and other needed equipment at home. It is to be noted that he was on gabapentin on admission and he continued to have quite a bit of pain, so Lyrica was added and the combination of gabapentin and Lyrica helped his pain immensely. He will continue on both the gabapentin and Lyrica. If he has any problems, he is to contact [facility], Dr. Valderrama or return to the hospital as needed. Dr. Ansari is the collaborating physician and available for consultation. DISCHARGE MEDICATIONS: 1. Aspirin. 2. Multivitamins. 3. Aleve. 4. Toprol XL. 5. Clonazepam. 6. Spiriva Respimat. 7. Pravastatin. 8. Pioglitazone. 9. Lisinopril. 10. Daliresp. 11. Glimepiride. 12. Pulmicort Respules. 13. Brovana. 14. Hydrocodone. 15. Gabapentin. 16. [place] 3 gummies. 17. Furosemide. 18. Chantix. 19. Lidocaine 5% patch. 20. Colace. 21. Guaifenesin. 22. Levemir insulin. 23. DuoNeb. 24. Omeprazole. 25. Lyrica. 26. Sodium chloride nasal spray. 27. Align. #[id number] #[id number] [facility]
== END 2017-06-04 19:40 | disposition hospice, home (50) | DRG 871 ==
LOC: MS 10:43
PROVIDERS: ADMIT Family Medicine; ATTEND Nurse Practitioner Acute Care
DX: A41.9 Sepsis, unspecified organism (principal); J18.9 Pneumonia, unspecified organism; B02.29 Other postherpetic nervous system involvement; N17.9 Acute kidney failure, unspecified; J44.0 Chronic obstructive pulmonary disease with (acute) lower respiratory infection; N10 Acute pyelonephritis; E86.0 Dehydration; D64.9 Anemia, unspecified; Z16.24 Resistance to multiple antibiotics; B96.20 Unspecified Escherichia coli [E. coli] as the cause of diseases classified elsewhere; E11.9 Type 2 diabetes mellitus without complications; J44.9 Chronic obstructive pulmonary disease, unspecified; I11.9 Hypertensive heart disease without heart failure; G25.0 Essential tremor; F41.1 Generalized anxiety disorder; Z16.12 Extended spectrum beta lactamase (ESBL) resistance; E78.5 Hyperlipidemia, unspecified; Z99.81 Dependence on supplemental oxygen; Z79.891 Long term (current) use of opiate analgesic; Z79.899 Other long term (current) drug therapy; Z79.1 Long term (current) use of non-steroidal anti-inflammatories (NSAID); Z79.82 Long term (current) use of aspirin; Z87.891 Personal history of nicotine dependence